=== PATIENT | male | born 1965 | race Caucasian/White ===

== ENCOUNTER 2020-01-11 23:00 | Inpatient (IN) | payer OTHER, SELFPAY ==
[2020-01-11] MEDS ORDERED: RSI MEDICATION KIT IV ONE (23:08)
[2020-01-11] MEDS ORDERED: NA CHLORIDE 0.9% 1,000 ML ONE ×2 (23:08→23:44)
[2020-01-11] MEDS ORDERED: NA CHLORIDE 0.9% 2,000 ML ONE (23:15)
[2020-01-11 23:31] LABS: Absolute Lymphocytes (CBC) 0.7 K/uL (0.7-4.9); Basophils % 0.3 % (0-1.3); Hematocrit 46.2 % (39.6-49.0); Lymphocytes % 4.6 % (15.3-44.8); MPV 9.5 fL (7.6-11.3); RBC Red Blood Cell Count 4.72 M/uL (4.33-5.43)
[2020-01-11] MEDS ORDERED: propofoL 1,000 MG/100 ML VIAL IV ONE (23:34)
[2020-01-11 23:35] LABS: Protime INR 0.93
[2020-01-11 23:44] LABS: Barbiturates NEGATIVE (NEGATIVE); Benzodiazepines POSITIVE (NEGATIVE); Cocaine NEGATIVE (NEGATIVE); METHAMPHETAM NEGATIVE (NEGATIVE); Methadone NEGATIVE (NEGATIVE); Opiates NEGATIVE (NEGATIVE); Phencyclidine NEGATIVE (NEGATIVE); THC Cannibis NEGATIVE (NEGATIVE)
[2020-01-11 23:44] LABS: Urine Blood NEGATIVE (NEG); Urine Glucose NEGATIVE (NEG); Urine Protein NEGATIVE (NEG); Urine Specific Gravity <1.005 (1.005-1.030)
[2020-01-11 23:59] LABS: ALT/SGPT 74 U/L (12-78); AST/SGOT 55 U/L (15-37); Albumin 3.3 g/dL (3.4-5.0); Alkaline Phosphatase 124 U/L (45-117); BUN Blood Urea Nitrogen 7 mg/dL (7-18); Bicarbonate 24 mmol/L (21-32); Bilirubin Direct 0.2 mg/dL (0-0.2); Bilirubin Total 0.6 mg/dL (0.2-1.0); Glucose Level 135 mg/dL (74-106); NT PRO-BNP 172 pg/mL (<125); Potassium 3.3 mmol/L (3.5-5.1); Protein, Total 6.8 g/dL (6.4-8.2); Sodium Level 137 mmol/L (136-145); Troponin (Emerg Dept Use Only) < 0.02 ng/mL (0.0-0.045)
[2020-01-12 00:26] LABS: Blood Morphology Comment NOT SEEN (NOT SEEN); Platelet Estimate ADEQ
[2020-01-12 00:40] LABS: Arterial Blood Carboxyhemoglob 1.7 % (0-1.5); Blood Gas Oxyhemoglobin 96.7 % (94-97); Blood O2 Saturation 99.2 % (92-98.5)
--- NOTE | 2020-01-12 01:04 | EDPHYS ---
Physician Documentation [facility] Name: Sheldon Cano Age: 54 yrs Sex: Male : 1965 Arrival Date: 01/11/2020 Time: 23:02 Bed 3 Private MD: ED Physician Derick Jeffery HPI: 01/11 00:35 This 54 yrs old Male presents to ER via EMS with complaints of Unresponsive. tw4 00:35 The patient presents with decreased mental status, decreased responsiveness. Onset: The tw4 symptoms/episode began/occurred today. Onset: The symptoms/episode began/occurred just prior to arrival. Possible causes: drug use, alcohol. Associated signs and symptoms: The patient has no apparent associated signs or symptoms. Current symptoms: In the emergency department the patient's symptoms are unchanged from the initial presentation. Patient's baseline: Neuro: alert and fully oriented, Motor: no deficits. The patient has not experienced similar symptoms in the past. Historical: - Allergies: 01/10 23:15 Unable to obtain; lp1 - Home Meds: 23:15 Unable to obtain [Active]; lp1 - PMHx: 23:15 Unable to obtain; lp1 - PSHx: 23:15 Unable to obtain; lp1 - Immunization history:: Adult Immunizations unknown. - Social history:: Smoking status: unknown. - History obtained from: son, EMS. - Unable to obtain history due to: comatose state. ROS: 01/11 00:35 Constitutional: Negative for fever, chills, and weight loss, Eyes: Negative for injury, tw4 pain, redness, and discharge, Cardiovascular: Negative for chest pain, palpitations, and edema, Respiratory: Negative for shortness of breath, cough, wheezing, and pleuritic chest pain, Abdomen/GI: Negative for abdominal pain, nausea, vomiting, diarrhea, and constipation, Back: Negative for injury and pain, Skin: Negative for injury, rash, and discoloration. Neuro: Positive for altered mental status. Exam: 00:35 Constitutional: This is a well developed, well nourished patient who is awake, alert, tw4 and in no acute distress. Head/Face: Normocephalic, atraumatic. Chest/axilla: Normal chest wall appearance and motion. Nontender with no deformity. No lesions are appreciated. Cardiovascular: Regular rate and rhythm with a normal S1 and S2. No gallops, murmurs, or rubs. Normal PMI, no JVD. No pulse deficits. Abdomen/GI: Soft, non-tender, with normal bowel sounds. No distension or tympany. No guarding or rebound. No evidence of tenderness throughout. Back: No spinal tenderness. No costovertebral tenderness. Full range of motion. 00:35 Constitutional: The patient appears comatose. 00:35 Eyes: Pupils: 00:35 Respiratory: the patient does not display signs of respiratory distress, Respirations: shallow respirations, Breath sounds: are clear throughout. 00:35 Neuro: Orientation: unable to test, the patient is comatose, Mentation: unable to test, Memory: unable to test. Vital Signs: 01/10 23:05 BP 75 / 58; Pulse 78; Resp 12; Pulse Ox 100% on 15% Non-rebreather mask; Weight 90.72 lp1 kg; 23:10 BP 96 / 74; Pulse 80; Resp 19; Pulse Ox 100% on 100% FiO2 ETT vent; rv 23:23 Temp 95.6(C); mg2 23:30 BP 147 / 94; Pulse 101; Resp 20; Temp 96.1(C); Pulse Ox 100% on 100% FiO2 ETT vent; rv 01/11 00:10 BP 123 / 72; Pulse 92; Resp 20; Pulse Ox 100% on 100% FiO2 ETT vent; rv 00:30 BP 113 / 78; Pulse 97; Resp 16; Temp 93.2(C); Pulse Ox 100% on 60% FiO2 ETT vent; rv 00:45 BP 101 / 76; Pulse 96; Resp 16; Temp 93.1; Pulse Ox 100% on 60% FiO2 ETT vent; rv 01:30 BP 96 / 76; Pulse 87; Resp 16; Temp 93.2; Pulse Ox 100% on 60% FiO2 ETT vent; rv 02:30 BP 91 / 67; Pulse 79; Resp 16; Temp 93.2; Pulse Ox 100% on 60% FiO2 ETT vent; rv 07:00 BP 103 / 70; Pulse 89; Resp 16; Temp 95.3; Pulse Ox 98% ; bp [place] Coma Score: 00:00 Eye Response: none(1). Verbal Response: none(1). Motor Response: none(1). Total: 3. rv 01:00 Eye Response: none(1). Verbal Response: none(1). Motor Response: none(1). Modifying rv Factors: Intubated. Total: 3. 02:00 Eye Response: none(1). Verbal Response: none(1). Motor Response: none(1). Modifying rv Factors: Intubated. Total: 3. Procedures: 03:35 Intubation: Ventilated with 100% NRB prior to procedure. O2 saturation prior to tw4 procedure was 97 %. Intubated orally using # 4 Jeremi blade with 7.5 mm ETT. was successful on first attempt. Ventilated with Ambu bag. ventilator. Tube secured with ETT vann at right side of mouth Placement verified by CXR, CO2 detector with (+) color change, auscultating bilateral breath sounds, Patient tolerated well. MDM: 01:00 Differential Diagnosis: electrolyte abnormality, hypoglycemia. Data reviewed: vital tw4 signs, nurses notes. Data reviewed: lab test result(s), cardiac enzymes, CBC, electrolytes, urine drug screen. Data interpreted: Pulse oximetry: Interpretation: normal. 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 Counseling: I had a detailed discussion with the patient and/or guardian regarding: the historical points, exam findings, and any diagnostic results supporting the discharge/admit diagnosis, lab results, radiology results. 01:03 Patient medically screened. tw4 03:13 Physician consultation: Sundar Sibley was contacted at 00:15, and will see patient in 4 inpatient room. 03:35 Test interpretation: by ED physician or midlevel provider: ECG, plain radiologic tw4 studies. ED course: Pt's workup in the ED did not reveal the etiology of patient;s altered mental status. Pt's drug screen was positive for benzodiazepine. However after speaking with family pt did not take any medications chronically. Pt rested comfort on the ventilator and ABG did not reveal any abnormalities. CT scan were also negative as well. Discussed case with Dr Sibley that agrees with treatment plan and admission . 01/10 23:11 Order name: Acetaminophen; Complete Time: 00:24 mg2 01/11 00:24 Interpretation: Within normal limits: ACETA < 2.0. tw4 01/10 23:11 Order name: Basic Metabolic Panel; Complete Time: 00:24 mg2 01/11 00:24 Interpretation: Normal except: K 3.3; GLUC 135; GFR 64. [facility] 01/10 23:11 Order name: CBC with Diff; Complete Time: 01:00 mg2 01/11 00:25 Interpretation: Normal except: WBC 14.9; LYM% 4.6; LUCIA% 90.7; NEUT A 13.5. [facility] 01/10 23:11 Order name: ETOH Level; Complete Time: 00:24 mg2 01/11 00:25 Interpretation: Within normal limits: ETOH < 10. 01/10 23:11 Order name: Hepatic Function; Complete Time: 00:24 mg2 01/10 23:11 Order name: PT-INR; Complete Time: 00:24 mg2 01/11 00:25 Interpretation: Within normal limits: PT 11.0. 01/10 23:11 Order name: Ptt, Activated; Complete Time: 00:24 mg2 01/11 00:25 Interpretation: Within normal limits: PTT 27.1. [facility] 01/10 23:11 Order name: Salicylate; Complete Time: 00:24 mg2 01/11 00:25 Interpretation: Within normal limits: ELSY 3.7. [facility] 01/10 23:11 Order name: Urine Drug Screen; Complete Time: 00:24 mg2 01/11 00:24 Interpretation: Normal except: BZO POSITIVE. 01/10 23:11 Order name: Troponin (emerg Dept Use Only); Complete Time: 00:24 mg2 01/11 00:25 Interpretation: Within normal limits: TROPED < 0.02. 01/10 23:18 Order name: COVID-19 [facility] 01/10 23:18 Order name: Flu; Complete Time: 00:24 mg2 01/11 00:25 Interpretation: Within normal limits. 01/10 23:18 Order name: Strep; Complete Time: 00:24 mg2 01/11 00:25 Interpretation: Within normal limits. 01/10 23:21 Order name: Urine Dipstick--Ancillary (enter results); Complete Time: 00:24 mt 01/11 00:25 Interpretation: Within normal limits. 01/10 23:26 Order name: D-Dimer; Complete Time: 00:24 EDMS 01/11 00:24 Interpretation: Abnormal: D-DIMER 722. 01/10 23:31 Order name: NT PRO-BNP; Complete Time: 00:24 EDPA 01/11 00:24 Interpretation: Normal except: NT PRO-BNP 172. tw4 01/10 23:39 Order name: Manual Differential; Complete Time: 01:00 EDPA 01/11 00:34 Order name: Throat Culture EDPA 01/11 00:39 Order name: ABG Arterial Blood Gas; Complete Time: 01:00 EDPA 01/11 01:03 Order name: Lactate; Complete Time: 03:12 tw 01/11 01:16 Order name: Blood Culture Adult (2) 01/11 04:03 Order name: CBC with Automated Diff EDPA 01/11 04:06 Order name: Protime (+INR) EDPA 01/11 04:31 Order name: Glucose, Ancillary Testing EDPA 01/11 04:32 Order name: Comprehensive Metabolic Panel [facility] 01/11 04:32 Order name: Phosphorus EDPA 01/11 04:32 Order name: Troponin I EDPA 01/10 23:11 Order name: EKG; Complete Time: 23:12 [facility] 01/10 23:11 Order name: EKG - Nurse/Tech; Complete Time: 23:19 [facility] 01/10 23:11 Order name: IV Saline Lock; Complete Time: 00:22 [facility] 01/10 23:11 Order name: Labs collected and sent; Complete Time: 00:22 [facility] 01/10 23:11 Order name: Urine Dipstick-Ancillary (obtain specimen); Complete Time: 00:22 [facility] 01/10 23:15 Order name: CXR XRAY [facility] 01/10 23:16 Order name: CT Head C Spine ne 01/10 23:18 Order name: Document PUI#; Complete Time: 00:22 [facility] 01/10 23:18 Order name: Droplet/Contact Precautions; Complete Time: 00:22 [facility] 01/10 23:18 Order name: Labs collected and sent; Complete Time: 00:21 [facility] 01/10 23:18 Order name: Notify [facility] [phone]/ ; Complete Time: 00:21 [facility] 01/10 23:18 Order name: O2 Per Protocol; Complete Time: 00:21 [facility] 01/10 23:40 Order name: CT Chest For PE Angio [facility] 01/11 02:51 Order name: CONS Physician Consult EDMS 01/11 04:32 Order name: T4 Free [facility] 01/11 04:32 Order name: Magnesium [facility] 01/11 04:32 Order name: Thyroid Stimulating Hormone [facility] 01/11 08:00 Order name: Troponin I [facility] EC:37 Rate is 78 beats/min. Rhythm is irregularly irregular, Normal Sinus Rhythm with Right tw4 bundle branch block. QRS [place] is Normal. MT interval is normal. QRS interval is normal. QT interval is prolonged at 458 msec. No Q waves. T waves are Normal. No ST changes noted. Clinical impression: NSR w/ Non-specific ST/T Changes. Interpreted by me. Reviewed by me. Administered Medications: 01/10 23:05 Drug: NS 0.9% 1000 ml Route: IV; Rate: 1000 ml; Site: right antecubital; lp1 01/11 00:21 Follow up: IV Status: Completed infusion; IV Intake: 1000ml rv 01/10 23:10 Drug: Etomidate 20 mg Route: IVP; Site: right antecubital; lp1 01/11 00:21 Follow up: Response: No adverse reaction rv 01/10 23:11 Drug: Succinylcholine 100 mg Route: IVP; Site: right antecubital; lp1 01/11 00:21 Follow up: Response: No adverse reaction 01/10 23:19 CANCELLED (Duplicate Order): Etomidate 20 mg IVP once rr5 23:19 CANCELLED (Duplicate Order): Succinylcholine 100 mg IVP once rr5 23:23 Drug: NS 0.9% 1000 ml Route: IV; Rate: 1 bolus; Site: left forearm; mg2 01/11 00:20 Follow up: IV Status: Completed infusion; IV Intake: 1000ml rv 01/10 23:40 Drug: Propofol 5 mcg/kg/min Route: IV; Rate: calculated rate; Site: left forearm; rv 01/11 00:30 Drug: Propofol 5 mcg/kg/min Route: IV; Rate: calculated rate; Site: left forearm; rv 03:21 Follow up: Rate change 2.5 mcg/kg/min rv 03:23 Follow up: IV Status: Infusion continued upon admission rv 01:34 Drug: Zosyn 3.375 grams Route: IVPB; Infused Over: 60 mins; Site: right antecubital; rv 02:35 Follow up: IV Status: Completed infusion rv Disposition: 03:35 Critical Care:. tw4 Disposition: 01/12/20 01:03 Hospitalization ordered by Sundar Sibley for Inpatient Admission. Preliminary diagnosis are Acute respiratory failure, Hypotension, Poisoning by benzodiazepines, undetermined, Altered mental status, unspecified. - Bed requested for Intensive Care Unit. - Status is Inpatient Admission. eb - Condition is Fair. - Problem is new. - Symptoms are unchanged. Critical care time excluding procedures: 03:35 Critical care time: Bedside Care: 35 minutes, Consultation: 10 minutes, Family tw4 Intervention: 5 minutes. Total time: 50 minutes Signatures: Dispatcher [employer] EDPA Nati Figueroa RN RN lp1 Madison Ramsey RN ANDRZEJ Derick Jeffery MD MD tw4 Lisset Bartlett Michele RN ANDRZEJ mg2 Devyn Raya RN RN rv Toby Nunez RN RN rr5 Corrections: (The following items were deleted from the chart) 01/10 23:19 23:18 Etomidate 20 mg IVP once ordered. rr5 rr5 23:19 23:18 Succinylcholine 100 mg IVP once ordered. rr5 rr5 23:26 23:21 D-DIMER+COAG.LAB.BRZ ordered. [facility] EDPA 23:31 23:21 TROPONIN (EMERG DEPT USE ONLY)+C.LAB.BRZ ordered. [facility] EDPA 23:31 23:21 PROBNP+C.LAB.BRZ ordered. [facility] 01/11 03:21 01:03 Hospitalization Ordered by Sundar Sibley for Inpatient Admission. Preliminary cg diagnosis is Acute respiratory failure; Hypotension; Poisoning by benzodiazepines, undetermined; Altered mental status, unspecified. Bed requested for Intensive Care Unit. Status is Inpatient Admission. Condition is Fair. Problem is new. Symptoms are unchanged. 4 05:50 03:21 01/12/2020 01:03 Hospitalization Ordered by Sundar Sibley for Inpatient cg Admission. Preliminary diagnosis is Acute respiratory failure; Hypotension; Poisoning by benzodiazepines, undetermined; Altered mental status, unspecified. Bed requested for [facility] ER HOLD. Status is Inpatient Admission. Condition is Fair. Problem is new. Symptoms are unchanged. cg 08:11 05:50 01/12/2020 01:03 Hospitalization Ordered by Sundar Sibley for Inpatient eb Admission. Preliminary diagnosis is Acute respiratory failure; Hypotension; Poisoning by benzodiazepines, undetermined; Altered mental status, unspecified. Bed requested for Intensive Care Unit. Status is Inpatient Admission. Condition is Fair. Problem is new. Symptoms are unchanged. cg
--- NOTE | 2020-01-12 01:04 | ER ---
Nurse's Notes [facility] Name: Sheldon Cano Age: 54 yrs Sex: Male : 1965 Arrival Date: 01/11/2020 Time: 23:02 Bed 3 Private MD: Diagnosis: Acute respiratory failure;Hypotension;Poisoning by benzodiazepines, undetermined;Altered mental status, unspecified Presentation: 01/10 23:05 Chief complaint: Chief complaint: EMS states: Called for patient found unresponsive lp1 sitting in chair on balcony by children; Per EMS, BP 87/53, HR 100, RR 16, O2 99% RA; No response with sternal rub or ammonia capsule by EMS. 23:08 Coronavirus screen: Proceed with normal triage. Ebola Screen: No symptoms or risks lp1 identified at this time. Risk Assessment: Do you want to hurt yourself or someone else? Unable to obtain. Onset of symptoms was January 11, 2020 at 22:23. Care prior to arrival: None. 23:08 Method Of Arrival: EMS: [facility] lp1 23:08 Acuity: JARED 1 lp1 23:19 Initial Sepsis Screen: Does the patient meet any 2 criteria? No. Patient's initial lp1 sepsis screen is negative. Does the patient have a suspected source of infection? No. Patient's initial sepsis screen is negative. Historical: - Allergies: 23:15 Unable to obtain; lp1 - Home Meds: 23:15 Unable to obtain [Active]; lp1 - PMHx: 23:15 Unable to obtain; lp1 - PSHx: 23:15 Unable to obtain; lp1 - Immunization history:: Adult Immunizations unknown. - Social history:: Smoking status: unknown. - History obtained from: son, EMS. - Unable to obtain history due to: comatose state. Screenin/26 00:25 Abuse screen: unresponsive. Nutritional screening: No deficits noted. Tuberculosis rv screening: No symptoms or risk factors identified. Fall Risk None identified. Assessment: 01/10 23:30 General: Appears distressed, Behavior is unresponsive. rv 23:30 Pain: Unable to use pain scale. Patient is unresponsive. Neuro: Level of Consciousness rv is unresponsive, Oriented to none Pupils are PERRLA, Pupil Size: 2. Cardiovascular: Rhythm is sinus rhythm with unifocal PVCs. Respiratory: Airway is patent Respiratory effort is even, Respiratory pattern is regular, Ventilator assessment: ET Tube: 7.5 Ventilator Mode: Assist Control (AC) Tidal Volume: 540 Respiratory Rate: 16 FiO2: 100%. HOB > 30 degrees. 24 at teeth Breath sounds are clear bilaterally. Derm: Skin is intact. 01/11 00:24 Respiratory: Ventilator assessment: ET tube adjusted by RT to 22 at teeth. rv 00:47 Reassessment: talked to the son at bedside. updated on the test results and plan of rv care. Dr Jeffery went in the room and explained to the relative the situation. 01:00 Reassessment:. Neuro: Level of Consciousness is unresponsive, Oriented to none Pupils rv are PERRLA, Pupil Size: 2. 01:00 Respiratory: Airway is patent Ventilator assessment: Ventilator Mode: Assist Control rv (AC) Tidal Volume: 540 Respiratory Rate: 16 FiO2: 60 HOB > 30 degrees. Breath sounds are clear bilaterally. 02:00 Neuro: Level of Consciousness is unresponsive, Oriented to none Pupils are PERRLA, rv Pupil Size: 2. Cardiovascular: Rhythm is sinus rhythm. Respiratory: Airway is patent Ventilator assessment: Ventilator Mode: Assist Control (AC) Tidal Volume: 540 Respiratory Rate: 16 FiO2: 60 HOB > 30 degrees. 07:00 Reassessment: RECD REPORT FROM ARLEEN DONNELLY. 54YO WM FOUND UNRESPONSIVE. PT NOT REQUIRING bp SEDATION FOR INTUBATION AT THIS TIME. ICU ADMIT PENDING. 07:42 Reassessment: REPORT TO CRISTAL DONNELLY FOR ICU 8. bp Vital Signs: 01/10 23:05 BP 75 / 58; Pulse 78; Resp 12; Pulse Ox 100% on 15% Non-rebreather mask; Weight 90.72 lp1 kg; 23:10 BP 96 / 74; Pulse 80; Resp 19; Pulse Ox 100% on 100% FiO2 ETT vent; rv 23:23 Temp 95.6(C); mg2 23:30 BP 147 / 94; Pulse 101; Resp 20; Temp 96.1(C); Pulse Ox 100% on 100% FiO2 ETT vent; rv 01/11 00:10 BP 123 / 72; Pulse 92; Resp 20; Pulse Ox 100% on 100% FiO2 ETT vent; rv 00:30 BP 113 / 78; Pulse 97; Resp 16; Temp 93.2(C); Pulse Ox 100% on 60% FiO2 ETT vent; rv 00:45 BP 101 / 76; Pulse 96; Resp 16; Temp 93.1; Pulse Ox 100% on 60% FiO2 ETT vent; rv 01:30 BP 96 / 76; Pulse 87; Resp 16; Temp 93.2; Pulse Ox 100% on 60% FiO2 ETT vent; rv 02:30 BP 91 / 67; Pulse 79; Resp 16; Temp 93.2; Pulse Ox 100% on 60% FiO2 ETT vent; rv 07:00 BP 103 / 70; Pulse 89; Resp 16; Temp 95.3; Pulse Ox 98% ; bp [place] Coma Score: 00:00 Eye Response: none(1). Verbal Response: none(1). Motor Response: none(1). Total: 3. rv 01:00 Eye Response: none(1). Verbal Response: none(1). Motor Response: none(1). Modifying rv Factors: Intubated. Total: 3. 02:00 Eye Response: none(1). Verbal Response: none(1). Motor Response: none(1). Modifying rv Factors: Intubated. Total: 3. ED Course: 01/10 23:02 Patient arrived in ED. cl3 23:05 Inserted saline lock: 18 gauge in right antecubital area, using aseptic technique. By lp1 ED staff. 23:10 First set of blood cultures drawn by me. rv 23:11 Assisted provider with intubation using 7.5 mm ETT via oral route. ET tube secured at lp1 24cm at the teeth. Set up intubation tray. Intubated by Derick Jeffery MD Placement verified by CO2 detector w/ + color change, auscultating bilateral breath sounds, CXR. 23:12 Triage completed. lp1 23:15 Patient has correct armband on for positive identification. Placed in gown. Side rails lp1 up X2. supervisor cab on. Pulse ox on. NIBP on. 23:20 Derick Jeffery MD is Attending Physician. tw4 23:20 Arm band placed on right wrist. lp1 23:22 Alex Donis, ANDRZEJ is Primary Nurse. mg2 23:42 CXR XRAY In Process Unspecified. EDMS 01/11 00:15 [place] cath inserted, using sterile technique, 16 Fr., by me, balloon inflated, to rv gravity drainage, urine specimen collected. Patient tolerated well. 00:26 CT Head C Spine In Process Unspecified. EDMS 00:29 CT Chest For PE Angio In Process Unspecified. EDMS 01:02 Sundar Sibley is Hospitalizing Provider. tw4 01:25 Second set of blood cultures drawn by me. rv 03:22 IV is patent, with fluids infusing freely, with good blood return, Patient admitted, IV rv remains in place. Administered Medications: 01/10 23:05 Drug: NS 0.9% 1000 ml Route: IV; Rate: 1000 ml; Site: right antecubital; lp1 01/11 00:21 Follow up: IV Status: Completed infusion; IV Intake: 1000ml rv 01/10 23:10 Drug: Etomidate 20 mg Route: IVP; Site: right antecubital; lp1 01/11 00:21 Follow up: Response: No adverse reaction rv 01/10 23:11 Drug: Succinylcholine 100 mg Route: IVP; Site: right antecubital; lp1 01/11 00:21 Follow up: Response: No adverse reaction rv 01/10 23:19 CANCELLED (Duplicate Order): Etomidate 20 mg IVP once rr5 23:19 CANCELLED (Duplicate Order): Succinylcholine 100 mg IVP once rr5 23:23 Drug: NS 0.9% 1000 ml Route: IV; Rate: 1 bolus; Site: left forearm; mg2 01/11 00:20 Follow up: IV Status: Completed infusion; IV Intake: 1000ml rv 01/10 23:40 Drug: Propofol 5 mcg/kg/min Route: IV; Rate: calculated rate; Site: left forearm; rv 01/11 00:30 Drug: Propofol 5 mcg/kg/min Route: IV; Rate: calculated rate; Site: left forearm; rv 03:21 Follow up: Rate change 2.5 mcg/kg/min rv 03:23 Follow up: IV Status: Infusion continued upon admission rv 01:34 Drug: Zosyn 3.375 grams Route: IVPB; Infused Over: 60 mins; Site: right antecubital; rv 02:35 Follow up: IV Status: Completed infusion rv Intake: 00:20 IV: 1000ml; Total: 1000ml. rv 00:21 IV: 1000ml; Total: 2000ml. rv 03:26 IV: 2000ml (IV Fluid); Total: 4000ml. rv Output: 03:26 Urine: 1000ml ([place]); Total: 1000ml. rv Outcome: 01:03 Decision to Hospitalize by Provider. tw4 03:22 Admitted to ER Hold. Please see [facility] for further documentation. rv 03:22 Condition: stable 03:22 Discharge instructions given to family, Instructed on the need for admit, Demonstrated understanding of instructions. 08:11 Patient left the ED. eb Signatures: Dispatcher [employer] EDNati Wright RN RN lp1 Moses Pemberton RN RN bp Derick Jeffery MD MD tw4 Lisset Bartlett Michele, RN RN [facility] Devyn Raya RN RN rv Miguel Alves3 Toby Nunez RN rr5 Corrections: (The following items were deleted from the chart) 01/10 23:12 23:05 Chief complaint: lp1 lp1 01/11 00:25 01/10 23:30 Neuro: Level of Consciousness is unresponsive, Oriented to none rv rv
[2020-01-12] MEDS ORDERED: PIPER/TAZO/NS 3.375gm 3.375 GM/100 ML BAG ONE (01:21)
--- NOTE | 2020-01-12 02:48 | P.HP ---
Certification for Inpatient Patient admitted to: Inpatient With expected LOS: >2 Midnights Practitioner: I am a practitioner with admitting privileges, knowledge of patient current condition, hospital course, and medical plan of care. Services: Services provided to patient in accordance with Admission requirements found in Title 42 Section 412.3 of the Code of Federal Regulations Patient History Date of Service: 01/12/20 Reason for admission: Unresponsive History of Present Illness: 54-year-old gentleman was brought to the emergency department via EMS on response, on 100% non-rebreather. EMS reports patient was found unresponsive sitting on his pouch. Patient son found him unresponsive and called EMS. Patient was intubated in the emergency department secondary to respiratory depression. He was also found to be hypothermic. Other positive findings include urine toxicology screen positive for benzodiazepine, hypothermia leukocytosis. His D-dimer was elevated but CTA thorax was negative for pulmonary embolism. Cause of patient's altered mental status is unknown. Benzodiazepine overdose suspected. Patient blood pressure has been stable. He is admitted to ICU for further management. Allergies Unable to Assess Allergy (Unverified 01/12/20 03:28) - Past Medical/Surgical History -: None - Family History Family History: Reviewed- Non-Contributory - Social History Alcohol use: Yes Place of Residence: Home Review of Systems is unable to be obtained Physical Examination - Physical Exam General: Unresponsive HEENT: Atraumatic, Other (Pinpoint pupils.), Sclerae nonicteric Neck: Supple, 2+ carotid pulse no bruit Respiratory: Clear to auscultation bilaterally, Normal air movement Cardiovascular: No edema, Regular rate/rhythm, Normal S1 S2 Capillary refill: <2 Seconds Gastrointestinal: Normal bowel sounds, Soft and benign, Non-distended Musculoskeletal: No swelling, No erythema Integumentary: No rashes Neurological: Other (Unresponsive.) - Studies Laboratory Data (last 24 hrs) 01/11/20 23:10: PT 11.0, INR 0.93, APTT 27.1 01/11/20 23:10: WBC 14.9 H, Hgb 15.6, Hct 46.2, Plt Count 179 01/11/20 23:10: Sodium 137, Potassium 3.3 L, BUN 7, Creatinine 1.19, Glucose 135 H, Total Bilirubin 0.6, AST 55 H, ALT 74, Alkaline Phosphatase 124 H Microbiology Data (last 24 hrs): 01/11/20 23:25 Throat Group A Streptococcus Rapid Screen - Final 01/11/20 23:25 Nasopharnyx Influenza Type A Antigen Screen - Final 01/11/20 23:25 Nasopharnyx Influenza Type B Antigen Screen - Final Assessment and Plan - Problems (Diagnosis) (1) Metabolic encephalopathy Current Visit: Yes Status: Acute (2) Acute respiratory failure Current Visit: Yes Status: Acute (3) Respiratory depression Current Visit: Yes Status: Acute (4) Hypothermia Current Visit: Yes Status: Acute - Plan Benzodiazepine overdose with respiratory depression suspected. Admit to ICU. Continue mechanical ventilator. P.r.n. sedation as needed. Neuro checks Consult to neurology Warming blanket. Empiric IV antibiotics. IV hydration. - Advance Directives Does patient have a Living Will: No Does patient have a Durable POA for Healthcare: No
[2020-01-12] MEDS ORDERED: NA CHLORIDE 0.9% 1,000 ML ONE (03:17)
[2020-01-12] MEDS ORDERED: ACETAMINOPHEN 650MG/RECT SUPP RECT PRN (03:29)
[2020-01-12] MEDS: D5 0.9 NS 1,000 ML IV SCH ×4 (03:29→17:26)
[2020-01-12] MEDS ORDERED: ONDANSETRON 4 MG/2 ML VIAL IV PRN (03:29)
[2020-01-12] MEDS ORDERED: VANCOMYCIN 1.25 GM in NA CHLORIDE 0.9% 250 ML IVPB SCH (03:29)
[2020-01-12 03:59] LABS: Absolute Lymphocytes (CBC) 0.7 K/uL (0.7-4.9); Basophils % 0.2 % (0-1.3); Hematocrit 40.5 % (39.6-49.0); Lymphocytes % 6.6 % (15.3-44.8); MPV 8.9 fL (7.6-11.3); RBC Red Blood Cell Count 4.12 M/uL (4.33-5.43)
[2020-01-12 04:20] LABS: ALT/SGPT 60 U/L (12-78); AST/SGOT 60 U/L (15-37); Albumin 2.5 g/dL (3.4-5.0); Alkaline Phosphatase 97 U/L (45-117); BUN Blood Urea Nitrogen 7 mg/dL (7-18); Bicarbonate 24 mmol/L (21-32); Bilirubin Total 0.8 mg/dL (0.2-1.0); Glucose Level 123 mg/dL (74-106); Magnesium 1.9 mg/dL (1.8-2.4); Phosphorus 4.2 mg/dL (2.5-4.9); Potassium 3.9 mmol/L (3.5-5.1); Protein, Total 5.2 g/dL (6.4-8.2); Sodium Level 142 mmol/L (136-145); Thyroid Stimulating Hormone 0.655 uIU/mL (0.360-3.740); Troponin I < 0.02 ng/mL (0.0-0.045)
[2020-01-12] MEDS ORDERED: VANCOMYCIN 1 GM/VIAL ONE (04:22)
[2020-01-12] MEDS ORDERED: NA CHLORIDE 0.9% 250 ML ONE (04:22)
[2020-01-12] MEDS ORDERED: D5W 1,000 ML IV ONE (04:23)
[2020-01-12] MEDS: CEFEPIME/SWI 1gm 10 ML IV SCH ×2 (06:00→17:12)
[2020-01-12] MEDS ORDERED: KCL 20 MEQ/100 mL IVPB 20 MEQ/100 ML BAG IV ONE (06:48)
[2020-01-12] MEDS ORDERED: D5 0.9 NS 1,000 ML IV ONE (06:48)
--- NOTE | 2020-01-12 06:48 | EKG ---
Test Date: 2020-01-11 Test Time: 23:05:03 Rubber Insulator: THI MEASUREMENT RESULTS: Intervals: Rate: 78 NV: 156 QRSD: 98 QT: 458 QTc: 522 [place]: P: 60 NV: 156 QRS: 90 T: 58 INTERPRETIVE STATEMENTS: Normal sinus rhythm Rightward axis Incomplete right bundle branch block Prolonged QT Abnormal ECG Compared to ECG 09/08/2008 18:16:57 Right-axis deviation now present Incomplete right bundle-branch block now present Prolonged QT interval now present Electronically Signed On 01-12-20 06:47:51 CDT by Jonh Balbuena
[2020-01-12] MEDS ORDERED: KCL 20 MEQ/100 mL IVPB 20 MEQ/100 ML BAG IV SCH (07:00)
--- NOTE | 2020-01-12 07:16 | RAD REPORT ---
EXAM DESCRIPTION: RAD - Chest Single View - 01/11/2020 11:42 pm CLINICAL HISTORY: unresponsive COMPARISON: Portable August 2008 TECHNIQUE: AP portable chest image was obtained 01/11/2020 11:42 pm . FINDINGS: Endotracheal tube is in good position mid aortic arch level. This is 2 cm above the peewee . No diffuse pulmonary edema or peripheral consolidation. Interstitial markings are mildly prominent. This is probably low lung volume artifact. A mild interstitial edema or infiltrate cannot be exclude d. Heart and vasculature are normal. No measurable pleural effusion and no pneumothorax. No acute bony abnormality seen. No acute aortic findings suspected. IMPRESSION: Endotracheal tube in good position. Interstitial opacification is probably low lung volume artifact. Mild interstitial edema or infiltrate cannot be excluded.
[2020-01-12] MEDS ORDERED: CEFEPIME 1 GM/VIAL IV SCH (09:00)
[2020-01-12] MEDS ORDERED: NA CHLORIDE 0.9% 1,000 ML IV ONE (09:06)
--- NOTE | 2020-01-12 11:18 | P.CNS ---
Date of Consult: 01/12/20 Reason for Consult: REspiratory failur dayana vent Chief Complaint: Unresponsive History of Present Illness: AW LOC. on Vent, Found unresponsive on cough. On ventilator now Pos for Benzos. pt is still unresponsive Allergies Unable to Assess Allergy (Unverified 01/12/20 03:28) - Past Medical/Surgical History -: None - Social History Smoking Status: Unknown if ever smoked Alcohol use: Yes Place of Residence: Home Review of Systems is unable to be obtained Physical Examination Temp Pulse Resp BP Pulse Ox 96.1 F L 83 14 80/57 L 97 01/12/20 09:00 01/12/20 09:00 01/12/20 09:00 01/12/20 09:00 01/12/20 09:00 General: Other (deferred pt Ro for coid ) Laboratory Data (last 24 hrs) 01/11/20 23:10: PT 11.0, INR 0.93, APTT 27.1 01/11/20 23:10: WBC 14.9 H, Hgb 15.6, Hct 46.2, Plt Count 179 01/11/20 23:10: Sodium 137, Potassium 3.3 L, BUN 7, Creatinine 1.19, Glucose 135 H, Total Bilirubin 0.6, AST 55 H, ALT 74, Alkaline Phosphatase 124 H - Problems (1) Acute respiratory failure Current Visit: Yes Status: Acute Plan: pt found unresponsive on vent. Tox screen pos for benzos mild hypercapnia. WBC now normal on 40% FIo2 COVID test pendingcultures neg CTA neg for PE and pneumnia. Ct head neg for stroke or bleed/ unable to contact son or sister listed UA neg afebrile/ plan to wean? Await cultures Qualifiers: Respiratory failure complication: hypoxia and hypercapnia Qualified Code(s): J96.01 - Acute respiratory failure with hypoxia; J96.02 - Acute respiratory failure with hypercapnia
[2020-01-12] MEDS ORDERED: SUCCINYLCHOLINE 20 MG/ML (10 ML) IV ONE (12:20)
[2020-01-12] MEDS ORDERED: ETOMIDATE 20 MG/10 ML VIAL IV ONE (12:20)
[2020-01-12] MEDS: THIAMINE 200 MG/2 ML INJ IVP SCH (14:43)
[2020-01-12] MEDS: ENOXAPARIN 40 MG/0.4 ML SQ SCH (14:44)
[2020-01-12] MEDS ORDERED: VANCOMYCIN 2 GM in NA CHLORIDE 0.9% 500 ML IVPB SCH ×2 (15:30→17:00)
--- NOTE | 2020-01-12 16:07 | PN ---
Date of Progress Note: 01/12/2020 Subjective: Patient seen through the ICU door. Case discussed with Dr. Joe. Patient is still intubated. No family at the bedside. Medications: List reviewed. Physical Examination: Vital Signs: Temperature 96.1, heart rate 83, blood pressure 80/57, respirations 14, O2 97% on 40% FiO2 Deferred as the patient has been seen past midnight is under investigation for COVID. Per state local CDC and [facility] guidelines to prevent transmission of the virus and conserve PPE. Please see, Dr. Sibley, admitting physician's physical examination for details. Laboratory Data: Sodium 142, potassium 3.9, chloride 112, CO2 of 24, BUN 7, creatinine 0.91, glucose 123, calcium 7.3, phosphorus 4.2, magnesium 1.9. AST 60, ALT 60. Troponin less than 0.02 x2 and rapid troponin also less than 0.02. Albumin 2.5. WBC 9.8, H and H 13.8 and 40.5, platelets 142, neutrophils 86%. INR 1. ABG; pH 7.32, pCO2 46, PO2 240, bicarb 23. UDS positive for benzodiazepines. Assessment: A 54-year-old male with: 1. Acute respiratory failure with hypoxia. We will continue with mechanical ventilation, appreciate Dr. Joe's input, likely secondary to respiratory depression from benzodiazepine use. 2. Acute metabolic encephalopathy, likely due to benzodiazepine use. Patient is not on any medications at home. 3. Hypothermia, improved. We will continue rewarming. Temperature is currently at 96.1, initially 95.6. 4. Acute hypotension. Blood pressure is 80/50s. We will repeat normal saline bolus and if not improving, we will start on pressors to keep MAP above 65. 5. Deep venous thrombosis prophylaxis with Lovenox. Plan: Continue broad-spectrum IV antibiotics. Follow up on culture results. COVID testing is also pending. Continue IV fluids. Overall guarded prognosis. We will reach out to family. SA/MODL Voice ID: [id number] Report ID: [id number] MILADIS
[2020-01-12] MEDS ORDERED: MIDAZOLAM HCL 2 MG/2 ML INJ IV PRN (16:38)
[2020-01-12] MEDS: LORazepam 2 MG/ML VIAL IV PRN (16:51)
[2020-01-12] MEDS: VANCOMYCIN 1.5 GM in NA CHLORIDE 0.9% 500 ML IVPB SCH (16:52)
--- NOTE | 2020-01-12 18:24 | RAD REPORT ---
EXAM DESCRIPTION: CT - [id number] - 01/12/2020 5:26 am CLINICAL HISTORY: Ams COMPARISON: None available TECHNIQUE: Axial CT of the head obtained from the skull apex to the skull base without contrast. Axi al CT images of the cervical spine obtained from the skull base through the thoracic inlet. Sagittal and coronal reformatted images available. FINDINGS: CT head: No acute intracranial hemorrhage identified. No mass, mass effect, shift of the midline, abnormal ext ra-axial fluid collection or CT evidence of acute ischemic change identified. The ventricular system is unremarkable. Scattered areas of hypodensity in the supratentorial white matter are nonspecific and may represent sequela of chronic small vessel ischemic change. The visualized paranasal sinuses and the mastoids are clear. No skull fracture identified. Visual ized orbits and globes are unremarkable. Cervical CT: Straightening of the cervical lordosis may be secondary to patient position. The atlantoaxial, atla ntodental, and occipitoatlantal intervals are preserved. No acute fracture of the cervical spine. V ertebral body height preserved. Prevertebral soft tissues are unremarkable. Mild to moderate multilevel loss of intervertebral disc height with endplate spondylosis, facet arthr opathy, and uncovertebral spurring. Mild multilevel osseous neural foraminal narrowing. Visualized skull base is intact. No fracture of the visualized facial bones. Visualized mastoid air c ells and paranasal sinuses are well aerated. Visualized thyroid is unremarkable. Partial visualization of endotracheal tube. No cervical lymphaden opathy. No pneumothorax in the visualized lung apices. IMPRESSION: 1. No acute intracranial abnormality. 2. No acute fracture or subluxation of the cervical spine. 3. Mild multilevel degenerative change of the cervical spine. This exam was performed according to our departmental dose-optimization program, which includes autom ated exposure control, adjustment of the mA and/or kV according to patient size and/or use of iterati ve reconstruction technique. Electronically signed by: Lux Rodriguez 01/12/2020 12:37 AM CDT Due to temporary technical issues with the PACS/Fluency reporting system, reports are being signed by the in house radiologist without review as a courtesy to ensure prompt reporting. The interpreting r adiologist is fully responsible for the content of the report.
--- NOTE | 2020-01-12 18:26 | RAD REPORT ---
EXAM DESCRIPTION: CT - Chest For Pe Angio - 01/12/2020 5:25 am CLINICAL HISTORY: The patient is 54 years old and is Male; SOB TECHNIQUE: Axial computed tomographic angiography images of the chest with intravenous contrast. T his CT exam was performed using one or more of the following dose reduction techniques: automated e xposure control, adjustment of the mA and/or kV according to patient size, and/or use of iterative re construction technique. MIP reconstructed images were created and reviewed. Oblique reformatted images were created and reviewed. DLP: 626 mGy*cm COMPARISON: Chest radiograph of the same day. FINDINGS: PULMONARY ARTERIES: Unremarkable. No pulmonary embolism. AORTA: No acute findings. No thoracic aortic aneurysm. LUNGS: Interlobular septal thickening bilaterally. Dependent subsegmental atelectasis and/or scarri ng. No focal consolidation. PLEURAL SPACE: Unremarkable. No significant effusion. No pneumothorax. HEART: The heart is mildly enlarged. No pericardial effusion. No evidence of RV dysfunction. BONES/JOINTS: No acute fracture. No dislocation. SOFT TISSUES: Unremarkable. LYMPH NODES: Unremarkable. No enlarged lymph nodes. GALLBLADDER AND BILE DUCTS: Prior cholecystectomy. TUBES, LINES AND DEVICES: Partially seen endotracheal tube. IMPRESSION: 1. No pulmonary embolism. 2. Mild cardiomegaly and interstitial edema. 3. Dependent subsegmental atelectasis and bibasilar scarring. Underlying infectious process cannot b e excluded although considered less likely. Electronically signed by: Kirit Carballo DO 01/12/2020 12:40 AM CDT Due to temporary technical issues with the PACS/Fluency reporting system, reports are being signed by the in house radiologist without review as a courtesy to ensure prompt reporting. The interpreting r adiologist is fully responsible for the content of the report.
[2020-01-12] MEDS: FAMOTIDINE 20 MG/2 ML VIAL IV SCH (20:32)
[2020-01-13] MEDS: D5 0.9 NS 1,000 ML IV SCH ×2 (03:02→08:17)
[2020-01-13] MEDS: VANCOMYCIN 1.5 GM in NA CHLORIDE 0.9% 500 ML IVPB SCH ×2 (05:21→17:00)
[2020-01-13] MEDS: CEFEPIME/SWI 1gm 10 ML IV SCH ×2 (05:22→17:03)
[2020-01-13 05:48] LABS: BUN Blood Urea Nitrogen 4 mg/dL (7-18); Bicarbonate 24 mmol/L (21-32); Glucose Level 121 mg/dL (74-106); Phosphorus 1.6 mg/dL (2.5-4.9); Potassium 3.5 mmol/L (3.5-5.1); Sodium Level 144 mmol/L (136-145)
[2020-01-13] MEDS ORDERED: POTASSIUM PHOS IN 0.9 % NACL 15 MMOL/250 ML BAG IV ONE (07:30)
[2020-01-13] MEDS: THIAMINE 200 MG/2 ML INJ IVP SCH (08:17)
[2020-01-13] MEDS: FAMOTIDINE 20 MG/2 ML VIAL IV SCH ×2 (08:17→20:07)
[2020-01-13] MEDS ORDERED: FUROSEMIDE 40 MG/4 ML VIAL IV ONE (14:10)
[2020-01-13] MEDS: FENTANYL CITR 100 MCG/2 ML IV PRN (14:19)
[2020-01-13] MEDS: D5.45NS W/KCL 20MEQ 20 MEQ/1,000 ML BAG IV SCH (14:20)
--- NOTE | 2020-01-13 14:28 | P.PN ---
Subjective Date of Service: 01/13/20 Chief Complaint: Unresponsive Subjective: New changes (more agitated , intermitently opens eyes - on weaning down fio02 - on pressure support now - no sedation since last pm) Review of Systems is unable to be obtained Physical Examination - Vital Signs Temperature: 97.6 F Blood Pressure: 154/135 Pulse: 98 Respirations: 21 Pulse Ox (%): 100 - Physical Exam General: Delirious HEENT: Atraumatic, Normocephalic (orally tubed) Neck: Supple, 2+ carotid pulse no bruit Respiratory: Clear to auscultation bilaterally, Normal air movement Cardiovascular: Normal pulses, Regular rate/rhythm, Normal S1 S2 Gastrointestinal: Normal bowel sounds, Soft and benign, Non-distended, W/out succussion splash Musculoskeletal: No clubbing, No swelling Neurological: Other (obtunded, occ opens yes , not following commands ) Urinary: [place] catheter - Studies Laboratory Last Values WBC 14.9 K/uL (4.3-10.9) H 01/11/20 23:10 RBC 4.72 M/uL (4.33-5.43) 01/11/20 23:10 Hgb 15.6 g/dL (13.6-17.9) 01/11/20 23:10 Hct 46.2 % (39.6-49.0) 01/11/20 23:10 MCV 97.8 fL (80-100) 01/11/20 23:10 MCH 33.0 pg (27.0-35.0) 01/11/20 23:10 MCHC 33.7 g/dL (32.0-36.0) 01/11/20 23:10 RDW 13.7 % (12.1-15.2) 01/11/20 23:10 Plt Count 179 K/uL (152-406) 01/11/20 23:10 MPV 9.5 fL (7.6-11.3) 01/11/20 23:10 Neutrophils % 90.7 % (41.7-73.7) H 01/11/20 23:10 Lymphocytes % 4.6 % (15.3-44.8) L 01/11/20 23:10 Monocytes % 4.2 % (3.3-12.3) 01/11/20 23:10 Eosinophils % 0.2 % (0-4.4) 01/11/20 23:10 Basophils % 0.3 % (0-1.3) 01/11/20 23:10 Absolute Neutrophils 13.5 K/uL (1.8-8.0) H 01/11/20 23:10 Segmented Neutrophils 84 % (40-80) H 01/11/20 23:10 Band Neutrophils 5 % (0-1) H 01/11/20 23:10 Absolute Lymphocytes 0.7 K/uL (0.7-4.9) 01/11/20 23:10 Lymphocytes 6 % (15-42) L 01/11/20 23:10 Monocytes 5 % (0-10) 01/11/20 23:10 Absolute Monocytes 0.6 K/uL (0.1-1.3) 01/11/20 23:10 Absolute Eosinophils 0.0 K/uL (0-0.5) 01/11/20 23:10 Absolute Basophils 0.0 K/uL (0-0.5) 01/11/20 23:10 Morphology Comment Not seen (NOT SEEN) 01/11/20 23:10 PT 11.0 SECONDS (9.5-12.5) 01/11/20 23:10 INR 0.93 01/11/20 23:10 APTT 27.1 SECONDS (24.3-36.9) 01/11/20 23:10 D-Dimer Cancelled 01/11/20 23:21 pH 7.32 (7.35-7.45) L 01/12/20 00:39 pCO2 46.1 mmHG (35-45) H 01/12/20 00:39 pO2 240.0 mmHG (75-100) H 01/12/20 00:39 HCO3 23.3 mmol/L (22-28) 01/12/20 00:39 Base Excess -1.9 mmol/L 01/12/20 00:39 Oxyhemoglobin 96.7 % (94-97) 01/12/20 00:39 ABG O2 Sat (Measured) 99.2 % (92-98.5) H 01/12/20 00:39 ABG Carboxyhemoglobin 1.7 % (0-1.5) H 01/12/20 00:39 ABG Methemoglobin 0.8 % (0-1.5) 01/12/20 00:39 Other Total Hgb 14.5 g/dl (12-18) 01/12/20 00:39 Inspired O2 60.0 % 01/12/20 00:39 Sodium 137 mmol/L (136-145) 01/11/20 23:10 Potassium 3.3 mmol/L (3.5-5.1) L 01/11/20 23:10 Chloride 104 mmol/L (98-107) 01/11/20 23:10 Carbon Dioxide 24 mmol/L (21-32) 01/11/20 23:10 BUN 7 mg/dL (7-18) 01/11/20 23:10 Creatinine 1.19 mg/dL (0.55-1.3) 01/11/20 23:10 Estimated GFR 64 mL/min (=/>90) L 01/11/20 23:10 Glucose 135 mg/dL (74-106) H 01/11/20 23:10 Lactic Acid 0.9 mmol/L (0.4-2.0) 01/12/20 01:25 Calcium 8.6 mg/dL (8.5-10.1) 01/11/20 23:10 Total Bilirubin 0.6 mg/dL (0.2-1.0) 01/11/20 23:10 Direct Bilirubin 0.2 mg/dL (0-0.2) 01/11/20 23:10 AST 55 U/L (15-37) H 01/11/20 23:10 ALT 74 U/L (12-78) 01/11/20 23:10 Alkaline Phosphatase 124 U/L (45-117) H 01/11/20 23:10 Rapid Troponin I < 0.02 ng/mL (0.0-0.045) 01/11/20 23:10 Rapid Troponin I Cancelled 01/11/20 23:10 NT-Pro-B Natriuret Pep 172 pg/mL (<125) H 01/11/20 23:10 NT-Pro-B Natriuret Pep Cancelled 01/11/20 23:10 Serum Total Protein 6.8 g/dL (6.4-8.2) 01/11/20 23:10 Albumin 3.3 g/dL (3.4-5.0) L 01/11/20 23:10 Globulin 3.5 g/dL (2.3-3.5) 01/11/20 23:10 Albumin/Globulin Ratio 0.9 (1.1-1.8) L 01/11/20 23:10 Urine pH 6.0 (5.0-7.0) 01/11/20 23:21 Ur Specific [place] <1.005 (1.005-1.030) L 01/11/20 23:21 Glucose (UA)(Auto) Negative (NEG) 01/11/20 23:21 Urine Ketones Negative (NEG) 01/11/20 23:21 Urine Blood Negative (NEG) 01/11/20 23:21 Urine Nitrite Negative (NEG) 01/11/20 23:21 Ur Leukocyte Esterase Negative (NEG) 01/11/20 23:21 Urine Total Protein Negative (NEG) 01/11/20 23:21 Salicylates 3.7 mg/dL (2.8-20) 01/11/20 23:10 Opiates Screen Negative (NEGATIVE) 01/11/20 23:10 Methadone Screen Negative (NEGATIVE) 01/11/20 23:10 Acetaminophen < 2.0 ug/mL (10.0-30.0) L 01/11/20 23:10 Ur Barbiturates Screen Negative (NEGATIVE) 01/11/20 23:10 Ur Phencyclidine Scrn Negative (NEGATIVE) 01/11/20 23:10 Amphetamines Screen Negative (NEGATIVE) 01/11/20 23:10 Benzodiazepines Screen Positive (NEGATIVE) H 01/11/20 23:10 Cocaine Screen Negative (NEGATIVE) 01/11/20 23:10 Ur THC Screen Negative (NEGATIVE) 01/11/20 23:10 Plasma/Serum Alcohol < 10 mg/dL (<10) 01/11/20 23:10 Microbiology Data (last 24 hrs): 01/11/20 23:25 Nasopharnyx Coronavirus COVID-19 PCR - Final Medications List Reviewed: Yes Assessment & Plan - Problems (Diagnosis) (1) Acute respiratory failure Current Visit: Yes Status: Acute Qualifiers: Respiratory failure complication: hypoxia and hypercapnia Qualified Code(s): J96.01 - Acute respiratory failure with hypoxia; J96.02 - Acute respiratory failure with hypercapnia (2) Hypothermia Current Visit: Yes Status: Acute (3) Metabolic encephalopathy Current Visit: Yes Status: Acute (4) Respiratory depression Current Visit: Yes Status: Acute Physician Review: Patient Assessed, Agree with Above Assessment and Plan Physician Review Additional Text: # Metabolic encephalopathy - may be due to benzodiazepine intoxication given. urine toxicology - will restart gentle IVF to increase urine flow and clearance - follow blood cx to r/o sepsis # acute respiratory failure -intubated for airway protection. -continue to wean FiO2 settings - plan for extubate when medically more awake -Keep intubated tonight - following pulmonary # history of tobacco use-start nicotine patch. # hypertension/fluid overload -LASIX X1 TODAY # DVT prophylaxis. Subcutaneous heparin. Advanced directives-remains full code family -sister d/w Time Spent Managing Pts Care (In Minutes): 35
--- NOTE | 2020-01-13 14:31 | RAD REPORT ---
EXAM DESCRIPTION: RAD - Chest Single View - 01/13/2020 1:15 pm CLINICAL HISTORY: r/o pneumonia Chest pain. COMPARISON: Chest Single View dated 01/11/2020; CHEST SINGLE VIEW dated 09/12/2008; CHEST PA AND LAT 2 VIEW dated 09/08/2008; CHEST PA AND LAT 2 VIEW dated 06/21/2003Chest Single View dated 01/11/2020; CHES T SINGLE VIEW dated 09/12/2008; CHEST PA AND LAT 2 VIEW dated 09/08/2008; CHEST PA AND LAT 2 VIEW dated 06/21/2003; Chest For Pe Angio dated 01/11/2020 FINDINGS: Portable technique limits examination quality. Tip of the ET tube is above the peewee. Enteric tube descends into the stomach. The lungs appear zac sly clear. Heart size is normal.
[2020-01-13] MEDS: LORazepam 2 MG/ML VIAL IV PRN (16:01)
[2020-01-13] MEDS: ENOXAPARIN 40 MG/0.4 ML SQ SCH (17:00)
[2020-01-14] MEDS: FENTANYL CITR 100 MCG/2 ML IV PRN (02:30)
[2020-01-14] MEDS: LORazepam 2 MG/ML VIAL IV PRN (03:20)
[2020-01-14] MEDS: VANCOMYCIN 1.5 GM in NA CHLORIDE 0.9% 500 ML IVPB SCH (04:30)
[2020-01-14 05:49] LABS: ALT/SGPT 47 U/L (12-78); AST/SGOT 40 U/L (15-37); Albumin 2.3 g/dL (3.4-5.0); Alkaline Phosphatase 141 U/L (45-117); BUN Blood Urea Nitrogen 6 mg/dL (7-18); Bicarbonate 25 mmol/L (21-32); Bilirubin Total 0.6 mg/dL (0.2-1.0); Glucose Level 105 mg/dL (74-106); Phosphorus 2.3 mg/dL (2.5-4.9); Potassium 3.1 mmol/L (3.5-5.1); Protein, Total 5.8 g/dL (6.4-8.2); Sodium Level 141 mmol/L (136-145)
[2020-01-14 06:00] LABS: Absolute Lymphocytes (CBC) 0.8 K/uL (0.7-4.9); Basophils % 0.3 % (0-1.3); Hematocrit 41.7 % (39.6-49.0); RBC Red Blood Cell Count 4.19 M/uL (4.33-5.43)
[2020-01-14] MEDS: CEFEPIME/SWI 1gm 10 ML IV SCH (06:02)
[2020-01-14] MEDS ORDERED: POTASSIUM PHOS IN 0.9 % NACL 15 MMOL/250 ML BAG IV ONE (07:30)
[2020-01-14] MEDS ORDERED: POTASSIUM 25 MEQ EFFERV TAB PO ONE (07:30)
[2020-01-14] MEDS: FAMOTIDINE 20 MG/2 ML VIAL IV SCH ×2 (08:11→20:00)
[2020-01-14] MEDS: THIAMINE 200 MG/2 ML INJ IVP SCH (08:11)
[2020-01-14] MEDS: IPRATROPIUM BROM 0.5MG/2.5ML NEB PRN ×2 (10:10→16:00)
[2020-01-14] MEDS: ALBUTEROL 2.5 MG/3 ML NEB SOL NEB PRN ×2 (10:10→16:00)
[2020-01-14] MEDS: D5.45NS W/KCL 20MEQ 20 MEQ/1,000 ML BAG IV SCH (11:40)
--- NOTE | 2020-01-14 11:53 | P.PN ---
Subjective Date of Service: 01/14/20 Chief Complaint: Unresponsive Subjective: No new changes (- still intubated , off sedation since last 6 hrs - still drowsy - open eyes with hard stimulus but not following commands) Physical Examination - Vital Signs Temperature: 97.2 F Blood Pressure: 103/86 Pulse: 90 Respirations: 15 Pulse Ox (%): 96 - Physical Exam General: Unresponsive, Comatose HEENT: Atraumatic, Normocephalic, Other (fading periobrital edema ) Neck: 2+ carotid pulse no bruit Respiratory: Clear to auscultation bilaterally, Normal air movement Cardiovascular: Regular rate/rhythm, Normal S1 S2 Gastrointestinal: Normal bowel sounds, Soft and benign, Non-distended - Studies Microbiology Data (last 24 hrs): 01/11/20 23:25 Throat Culture & Sensitivity - Final 01/11/20 23:25 Nasopharnyx Coronavirus COVID-19 PCR - Final Medications List Reviewed: Yes Assessment And Plan - Current Problems (Diagnosis) (1) Acute respiratory failure Current Visit: Yes Status: Acute Qualifiers: Respiratory failure complication: hypoxia and hypercapnia Qualified Code(s): J96.01 - Acute respiratory failure with hypoxia; J96.02 - Acute respiratory failure with hypercapnia (2) Hypothermia Current Visit: Yes Status: Acute (3) Metabolic encephalopathy Current Visit: Yes Status: Acute (4) Respiratory depression Current Visit: Yes Status: Acute Physician Review: Patient Assessed, Agree with Above Assessment and Plan Physician Review Additional Text: # Metabolic encephalopathy - still persistent -still drowsys -c/w IVF nd diuretics for periobital edema -may be due to benzodiazepine intoxication given. urine toxicology - follow blood cx to r/o sepsis # acute respiratory failure - still drowsy -c/w low fio02 needs - plan for extubation when more awake today if feasible -intubated for airway protection. -continue to wean FiO2 settings - following pulmonary # history of tobacco use-start nicotine patch. # hypertension/fluid overload -LASIX X1 TODAY # DVT prophylaxis. Subcutaneous heparin. Advanced directives-remains full code family -sister d/w
[2020-01-14] MEDS: ENOXAPARIN 40 MG/0.4 ML SQ SCH (17:03)
[2020-01-14] MEDS: HALOPERIDOL LACT 5 MG/ML INJ IV PRN (20:19)
[2020-01-14] MEDS ORDERED: LORazepam 2 MG/ML VIAL IV ONE (22:08)
[2020-01-14] MEDS ORDERED: LORazepam 2 MG/ML VIAL ONE (22:18)
[2020-01-15] MEDS: HALOPERIDOL LACT 5 MG/ML INJ IV PRN ×3 (01:32→20:51)
[2020-01-15 05:08] LABS: Absolute Lymphocytes (CBC) 0.8 K/uL (0.7-4.9); Basophils % 0.6 % (0-1.3); Hematocrit 39.5 % (39.6-49.0); Lymphocytes % 9.4 % (15.3-44.8); MPV 10.1 fL (7.6-11.3); RBC Red Blood Cell Count 4.08 M/uL (4.33-5.43)
[2020-01-15 06:35] LABS: ALT/SGPT 41 U/L (12-78); AST/SGOT 35 U/L (15-37); Albumin 2.4 g/dL (3.4-5.0); Alkaline Phosphatase 151 U/L (45-117); BUN Blood Urea Nitrogen 4 mg/dL (7-18); Bicarbonate 24 mmol/L (21-32); Bilirubin Total 0.6 mg/dL (0.2-1.0); Glucose Level 324 mg/dL (74-106); Potassium 4.7 mmol/L (3.5-5.1); Sodium Level 138 mmol/L (136-145)
[2020-01-15 07:28] LABS: Magnesium 1.7 mg/dL (1.8-2.4); Phosphorus 2.5 mg/dL (2.5-4.9)
[2020-01-15] MEDS ORDERED: WATER FOR INJ,STERILE 10 ML IM PRN (08:32)
[2020-01-15] MEDS: THIAMINE 200 MG/2 ML INJ IVP SCH (09:29)
[2020-01-15] MEDS ORDERED: MAGNESIUM SULFATE 1 gm IVPB 1 GM/100 ML BAG IV ONE (09:32)
[2020-01-15] MEDS: D5.45NS W/KCL 20MEQ 20 MEQ/1,000 ML BAG IV SCH (10:51)
--- NOTE | 2020-01-15 13:34 | P.PN ---
Subjective Date of Service: 01/15/20 Primary Care Provider: none Chief Complaint: Unresponsive Subjective: Other (Patient admits alcohol, tobacco and illegal drug use. Patient is less confused. Slight agitation noted.) Physical Examination - Vital Signs Temperature: 98.7 F Blood Pressure: 161/91 Pulse: 79 Respirations: 21 Pulse Ox (%): 100 - Physical Exam General: Alert, Other (Slight agitation noted. Patient more alert today than yesterday.) HEENT: Atraumatic Neck: Supple Respiratory: Clear to auscultation bilaterally, Normal air movement Cardiovascular: Normal pulses, Regular rate/rhythm Gastrointestinal: Normal bowel sounds, No masses, No rebound, No guarding Neurological: Normal speech, Normal strength at 5/5 x4 extr, Normal tone, Normal affect - Studies Microbiology Data (last 24 hrs): 01/11/20 23:25 Throat Culture & Sensitivity - Final Medications List Reviewed: Yes Assessment & Plan Discharge Plan: Home Plan to discharge in: 24 Hours Physician Review Additional Text: Impression: Acute respiratory failure likely related to benzodiazepine over use versus illegal drug use Metabolic encephalopathy related to above History of tobacco abuse History of illegal drug use History of alcohol abuse History of hypertension Plan: Acute respiratory failure likely related to benzodiazepine over use versus illegal drug use: Patient more alert today. Slight agitation. Will need to monitor for alcohol withdrawal. Patient admits tobacco, alcohol and illegal drug use. Patient reports that he was recently around some people that was smoking illegal substance. Suspect acute respiratory failure and altered mental status related to this. Patient extubated yesterday. What physical therapy ambulate. Will provide medication for agitation. Anticipate improvement over the next 24 hr with possible discharge at that time. Metabolic encephalopathy related to above: Improved. No evidence of infection. Will monitor closely. This may be related to illegal drug use. History of tobacco abuse: Provide nicotine patch History of illegal drug use: Patient admits to illegal drug use in the past. Patient was around some people that was using some type of illegal substance. History of alcohol abuse: Will need to monitor for alcohol withdrawal. Will start Librium 3 times a day. Will provide Ativan as needed. History of hypertension: Will monitor blood pressure. Will provide IV medication. May need to start medication. Time Spent Managing Pts Care (In Minutes): 55
[2020-01-15] MEDS: chlordiazePOXIDE HCl 25 MG CAP PO SCH ×2 (13:55→19:19)
[2020-01-15] MEDS: LORazepam 2 MG/ML VIAL IV PRN ×4 (13:55→21:07)
[2020-01-15] MEDS: ZIPRASIDONE MESYLA 20 MG/VIAL IM PRN ×2 (14:26→19:28)
[2020-01-15] MEDS ORDERED: WATER FOR INJ,STERILE 10 ML ONE (14:33)
[2020-01-15] MEDS: ENOXAPARIN 40 MG/0.4 ML SQ SCH (16:11)
[2020-01-16 05:26] LABS: Absolute Lymphocytes (CBC) 0.8 K/uL (0.7-4.9); Basophils % 0.6 % (0-1.3); Hematocrit 41.6 % (39.6-49.0); Lymphocytes % 12.4 % (15.3-44.8); RBC Red Blood Cell Count 4.23 M/uL (4.33-5.43)
[2020-01-16 05:31] LABS: ALT/SGPT 42 U/L (12-78); AST/SGOT 35 U/L (15-37); Albumin 2.7 g/dL (3.4-5.0); Alkaline Phosphatase 169 U/L (45-117); BUN Blood Urea Nitrogen 6 mg/dL (7-18); Bicarbonate 25 mmol/L (21-32); Bilirubin Total 0.6 mg/dL (0.2-1.0); Glucose Level 97 mg/dL (74-106); Magnesium 2.2 mg/dL (1.8-2.4); Potassium 3.3 mmol/L (3.5-5.1); Protein, Total 6.5 g/dL (6.4-8.2); Sodium Level 141 mmol/L (136-145)
[2020-01-16] MEDS ORDERED: POTASSIUM 25 MEQ EFFERV TAB PO ONE (06:00)
[2020-01-16 06:46] VITALS: BMI 3515.0
[2020-01-16] MEDS: chlordiazePOXIDE HCl 25 MG CAP PO SCH ×2 (08:06→13:47)
[2020-01-16] MEDS ORDERED: THIAMINE HCL 100 MG TABLET PO SCH (09:00)
[2020-01-16] MEDS ORDERED: FOLIC ACID 1 MG TABLET PO SCH (09:00)
[2020-01-16] MEDS ORDERED: NICOTINE 21 MG/PAT TD SCH (09:00)
[2020-01-16 09:02] VITALS: O2SAT 95
--- NOTE | 2020-01-16 11:06 | P.DS ---
Admission Date: 01/12/20 Discharge Date: 01/16/20 Primary Care Provider: none Disposition: ROUTINE DISCHARGE Discharge Condition: GOOD Reason for Admission: Unresponsive Consultations: Pulmonary-Dr. Joe Procedures: CT Head: FINDINGS: CT head: No acute intracranial hemorrhage identified. No mass, mass effect, shift of the midline, abnormal extra-axial fluid collection or CT evidence of acute ischemic change identified. The ventricular system is unremarkable. Scattered areas of hypodensity in the supratentorial white matter are nonspecific and may represent sequela of chronic small vessel ischemic change. The visualized paranasal sinuses and the mastoids are clear. No skull fracture identified. Visualized orbits and globes are unremarkable. Cervical CT: Straightening of the cervical lordosis may be secondary to patient position. The atlantoaxial, atlantodental, and occipitoatlantal intervals are preserved. No acute fracture of the cervical spine. Vertebral body height preserved. Prevertebral soft tissues are unremarkable. Mild to moderate multilevel loss of intervertebral disc height with endplate spondylosis, facet arthropathy, and uncovertebral spurring. Mild multilevel osseous neural foraminal narrowing. Visualized skull base is intact. No fracture of the visualized facial bones. Visualized mastoid air cells and paranasal sinuses are well aerated. Visualized thyroid is unremarkable. Partial visualization of endotracheal tube. No cervical lymphadenopathy. No pneumothorax in the visualized lung apices. IMPRESSION: 1. No acute intracranial abnormality. 2. No acute fracture or subluxation of the cervical spine. 3. Mild multilevel degenerative change of the cervical spine. CT AB: COMPARISON: Chest radiograph of the same day. FINDINGS: PULMONARY ARTERIES: Unremarkable. No pulmonary embolism. AORTA: No acute findings. No thoracic aortic aneurysm. LUNGS: Interlobular septal thickening bilaterally. Dependent subsegmental atelectasis and/or scarring. No focal consolidation. PLEURAL SPACE: Unremarkable. No significant effusion. No pneumothorax. HEART: The heart is mildly enlarged. No pericardial effusion. No evidence of RV dysfunction. BONES/JOINTS: No acute fracture. No dislocation. SOFT TISSUES: Unremarkable. LYMPH NODES: Unremarkable. No enlarged lymph nodes. GALLBLADDER AND BILE DUCTS: Prior cholecystectomy. TUBES, LINES AND DEVICES: Partially seen endotracheal tube. IMPRESSION: 1. No pulmonary embolism. 2. Mild cardiomegaly and interstitial edema. 3. Dependent subsegmental atelectasis and bibasilar scarring. Underlying infectious process cannot be excluded although considered less likely. Medical Problem List: Acute respiratory failure likely related to benzodiazepine overuse versus illegal drug use Metabolic encephalopathy related to above History of tobacco abuse History of illegal drug use History of alcohol abuse History of hypertension Brief History of Present Illness: 54-year-old male with history of alcohol, tobacco abuse. Patient was found unresponsive at home. Patient was found to be hypothermic with acute respiratory failure. Patient required intubation. Patient admitted to ICU for further evaluation. Patient was found positive for benzodiazepine. Hospital Course: Patient presented to the ER on responsive with acute respiratory failure. Patient found have positive drug screen for benzodiazepine. Patient required intubation. Patient also had metabolic encephalopathy related to above. Patient with history of tobacco, alcohol and drug abuse in the past. The patient did well during the course of his stay. CT head unremarkable. CT chest showed no pulmonary embolism or pneumonia. The patient was eventually extubated and seen by pulmonology. No evidence of infection noted. No further intervention was required. After further evaluation and investigation of patient's history, there has been a great deal of stress at home. Increase soc ial issues noted. There is some concern that the patient may have over used benzodiazepine or this was given by 1 of his friends. He does report that he hangs around people that abuse drugs. Due to his history of alcohol abuse, the patient was started on Librium during his stay. The patient has done well. Patient appears to be at his baseline level. Patient is able to walk appropriately. Fall precautions recommended. At discharge patient will continue with thiamine 100 mg daily and nicotine patch daily. Alcohol, tobacco and illegal drug use addressed in detail. This included cessation education. Patient will be discharged home. Recommend to establish care with a local PCP to follow up this hospitalization. Due to his alcohol history and plan to continue alcohol, patient will not require Librium at discharge. Education on alcohol cessation will be provided. Patient may benefit with psychiatric evaluation as an outpatient to further address underlying social issues. Vital Signs/Physical Exam: Temp Pulse Resp BP Pulse Ox 97.9 F 81 15 135/76 96 01/16/20 04:00 01/16/20 05:58 01/16/20 05:58 01/16/20 05:58 01/16/20 05:58 General: Alert, In no apparent distress, Oriented x3, Cooperative, Other (Patient more alert and able to walk appropriately.) HEENT: Atraumatic Neck: Supple Respiratory: Clear to auscultation bilaterally, Normal air movement Cardiovascular: Normal pulses, Regular rate/rhythm Gastrointestinal: Normal bowel sounds, Soft and benign, Non-distended, No tenderness, No masses, No rebound, No guarding Musculoskeletal: No erythema, No tenderness, No warmth Integumentary: No tenderness/swelling, No erythema, No warmth, No cyanosis Neurological: Normal speech, Normal strength at 5/5 x4 extr, Normal tone, Normal affect Laboratory Data at Discharge: WBC 6.8 K/uL (4.3-10.9) D 01/16/20 04:39 Hgb 14.0 g/dL (13.6-17.9) 01/16/20 04:39 Hct 41.6 % (39.6-49.0) 01/16/20 04:39 Plt Count 157 K/uL (152-406) D 01/16/20 04:39 PT 11.8 SECONDS (9.5-12.5) 01/12/20 03:45 INR 1.00 01/12/20 03:45 APTT 27.1 SECONDS (24.3-36.9) 01/11/20 23:10 Sodium 141 mmol/L (136-145) 01/16/20 04:39 Potassium 3.3 mmol/L (3.5-5.1) L 01/16/20 04:39 BUN 6 mg/dL (7-18) L 01/16/20 04:39 Creatinine 0.70 mg/dL (0.55-1.3) 01/16/20 04:39 Glucose 97 mg/dL (74-106) 01/16/20 04:39 Phosphorus 2.5 mg/dL (2.5-4.9) 01/15/20 05:50 Magnesium 2.2 mg/dL (1.8-2.4) D 01/16/20 04:39 Total Bilirubin 0.6 mg/dL (0.2-1.0) 01/16/20 04:39 AST 35 U/L (15-37) 01/16/20 04:39 ALT 42 U/L (12-78) 01/16/20 04:39 Alkaline Phosphatase 169 U/L (45-117) H 01/16/20 04:39 Troponin I 0.06 ng/mL (0.0-0.045) H 01/12/20 23:59 Home Medications: Nicotine [Nicoderm*] 21 mg TD DAILY #30 patch.td24 01/16/20 Thiamine HCl [Vitamin B-1*] 100 mg PO DAILY #90 tablet 01/16/20 New Medications: Nicotine [Nicoderm*] 21 mg TD DAILY #30 patch.td24 Thiamine HCl [Vitamin B-1*] 100 mg PO DAILY #90 tablet Patient Discharge Instructions: 1. Recommend to establish care with a PCP in the local area to follow up this hospitalization. 2. Provide education on tobacco, alcohol and illegal drug use cessation. 3. Please go over patient instructions, recommendations and medications. 4. Fall precautions in place. Diet: AHA Activity: Fall precautions Time spent managing pt's care (in minutes): 55
[2020-01-16 13:54] VITALS: BP 139/84; TEMP 98.3
== END 2020-01-16 14:28 | disposition home or self-care (01) | DRG 917 ==
LOC: ER 23:00 → ERHOLD 01-12 02:53 → 3RD-ICU 01-12 07:43
PROVIDERS: ADMIT Internal Medicine; ATTEND Family Medicine
PROC: 5A1945Z Respiratory Ventilation, 24-96 Consecutive Hours (ICD-10-PCS; principal; 2020-01-12)
PROC: 0BH17EZ Insertion of Endotracheal Airway into Trachea, Via Natural or Artificial Opening (ICD-10-PCS; 2020-01-12)
DX: T42.4X1A Poisoning by benzodiazepines, accidental (unintentional), initial encounter (principal); J96.01 Acute respiratory failure with hypoxia; J96.02 Acute respiratory failure with hypercapnia; G92 Toxic encephalopathy; R40.20 Unspecified coma; I95.9 Hypotension, unspecified; E87.70 Fluid overload, unspecified; I10 Essential (primary) hypertension; T68.XXXA Hypothermia, initial encounter; Z20.828 Contact with and (suspected) exposure to other viral communicable diseases
CPT/HCPCS: 31500; 36415; 51702; 70450; 71045; 71275; 72125; 80048; 80053; 80076; 80202; 80307; 80320; 80329; 81003; 82805; 82947; 83605; 83735; 83880; 84100; 84132; 84439; 84443; 84484; 85025; 85379; 85610; 85730; 87040; 87070; 87081; 87804; 93005; 94002; 94003; 96365; 96366; 96368; 96375; 99291; 99292; J0330; J0692; J1630; J1650; J1940; J2543; J2704; J3010; J3411; J3475; J3486; J7030; J7040; J7042; Q9967; U0002

== ENCOUNTER 2021-01-13 16:13 | Emergency (ER) | payer SELFPAY ==
[2021-01-13] MEDS ORDERED: CEFEPIME/SWI 1gm 10 ML ONE (18:58)
--- NOTE | 2021-01-13 19:08 | RAD REPORT ---
EXAM DESCRIPTION: RAD - Tib Fib Left - 01/13/2021 6:51 pm CLINICAL HISTORY: Left leg pain and swelling COMPARISON: None. FINDINGS: No fracture is identified. There is no dislocation or periosteal reaction noted. No acute or suspicious bony finding. Soft tissue swelling is present anterior and lateral ankle. Left foot is separately detailed. IMPRESSION: Distal left leg soft tissue swelling without acute bone or joint finding.
--- NOTE | 2021-01-13 19:09 | RAD REPORT ---
EXAM DESCRIPTION: RAD - Foot Left 3 View - 01/13/2021 6:51 pm CLINICAL HISTORY: Pain;Swelling COMPARISON: No comparisons FINDINGS: No fracture, dislocation or periosteal reaction. No acute or destructive bony process. Fi rst MTP joint degenerative changes are present. Very minimal spurring at the Achilles attachment. No plantar spur. No air or foreign body in the soft tissues. Soft tissue swelling is present over the dorsum of the fo ot. IMPRESSION: Left foot soft tissue swelling without acute bone or joint finding.
[2021-01-13] MEDS ORDERED: NA CHLORIDE 0.9% 1,000 ML ONE (19:19)
[2021-01-13 19:34] LABS: Absolute Lymphocytes (CBC) 1.7 K/uL (0.7-4.9); Basophils % 0.6 % (0-1.3); Hematocrit 46.3 % (39.6-49.0); Lymphocytes % 14.2 % (15.3-44.8); MPV 9.4 fL (7.6-11.3); RBC Red Blood Cell Count 4.82 M/uL (4.33-5.43)
[2021-01-13 19:39] LABS: Protime INR 0.97
[2021-01-13] MEDS ORDERED: VANCOMYCIN 1 GM/VIAL ONE (19:46)
[2021-01-13] MEDS ORDERED: NA CHLORIDE 0.9% 250 ML ONE ×2 (19:47→19:50)
[2021-01-13 19:50] LABS: ALT/SGPT 50 U/L (12-78); Albumin 3.6 g/dL (3.4-5.0); Alkaline Phosphatase 167 U/L (45-117); BUN Blood Urea Nitrogen 7 mg/dL (7-18); Bicarbonate 25 mmol/L (21-32); Bilirubin Direct 0.2 mg/dL (0-0.2); Bilirubin Total 0.8 mg/dL (0.2-1.0); Glucose Level 90 mg/dL (74-106); Protein, Total 8.5 g/dL (6.4-8.2); Sodium Level 133 mmol/L (136-145)
[2021-01-13 19:51] LABS: AST/SGOT 32 U/L (15-37); Potassium 3.6 mmol/L (3.5-5.1)
--- NOTE | 2021-01-13 19:51 | RAD REPORT ---
EXAM DESCRIPTION: US - Extremity Venous Uni Ltd - 01/13/2021 7:19 pm CLINICAL HISTORY: Pain;Swelling COMPARISON: None. TECHNIQUE: Real-time sonographic evaluation of the left lower extremity deep venous system was perfo rmed. FINDINGS: Normal compressibility, flow augmentation, phasic flow and spontaneous flow are identified in the left lower extremity common femoral, superficial femoral, popliteal and posterior tibial vein s. No intraluminal filling defects seen. Several lymph nodes are present in the left groin, nonspecific. IMPRESSION: No DVT in the left lower extremity.
--- NOTE | 2021-01-13 21:59 | ER ---
Nurse's Notes [facility] Name: Sheldon Cano Age: 55 yrs Sex: Male : 1965 Arrival Date: 01/13/2021 Time: 16:17 Bed 25 [facility] MD: Diagnosis: Cellulitis of left lower limb Presentation: 01/13 16:37 Chief complaint: Patient states: "[place]. by jd3 Wednesday evening I was vomiting and my left foot was very swollen.". Coronavirus screen: At this time, the client does not indicate any symptoms associated with coronavirus-19. Ebola Screen: Patient negative for fever greater than or equal to 101.5 degrees Fahrenheit, and additional compatible Ebola Virus Disease symptoms. Initial Sepsis Screen: Does the patient meet any 2 criteria? No. Patient's initial sepsis screen is negative. Does the patient have a suspected source of infection? No. Patient's initial sepsis screen is negative. Risk Assessment: Do you want to hurt yourself or someone else? Patient reports no desire to harm self or others. Onset of symptoms was January 10, 2021. 16:37 Method Of Arrival: Ambulatory jd3 16:37 Acuity: JARED 3 jd3 Historical: - Allergies: 16:41 No Known Allergies; jd3 - Home Meds: 16:41 None [Active]; jd3 - PMHx: 16:41 None; jd3 - PSHx: 16:41 Hernia repair; Cholecystectomy; right knee; left hand; jd3 - Immunization history:: Adult Immunizations up to date, Client reports having NOT received the Covid vaccine. - Social history:: Smoking status: Patient reports the use of cigarette tobacco products, smokes two packs cigarettes per day. Screenin:08 Abuse screen: Denies threats or abuse. Nutritional screening: No deficits noted. vg1 Tuberculosis screening: No symptoms or risk factors identified. Fall Risk No fall in past 12 months (0 pts). No secondary diagnosis (0 pts). IV access (20 points). Ambulatory Aid- None/Bed Rest/Nurse Assist (0 pts). Gait- Normal/Bed Rest/Wheelchair (0 pts) Mental Status- Oriented to own ability (0 pts). Total Sterling Fall Scale indicates No Risk (0-24 pts). Assessment: 18:28 General: Appears in no apparent distress. comfortable, Behavior is calm, cooperative. vg1 Pain: Complains of pain in left foot Pain currently is 2 out of 10 on a pain scale. at worst was 6 out of 10 on a pain scale. Pain began 2-3 days ago. Neuro: Level of Consciousness is awake, alert, obeys commands, Oriented to person, place, time, situation. Cardiovascular: Patient's skin is warm and dry. Respiratory: Airway is patent Respiratory effort is even, unlabored. GI: No signs and/or symptoms were reported involving the gastrointestinal system. : No signs and/or symptoms were reported regarding the genitourinary system. EENT: No signs and/or symptoms were reported regarding the EENT system. Derm: Skin is intact, Skin is red, to left foot. Musculoskeletal: Swelling present in left foot. 19:36 Reassessment: Patient appears in no apparent distress at this time. No changes from vg1 previously documented assessment. Patient and/or family updated on plan of care and expected duration. Pain level reassessed. Patient is alert, oriented x 3, equal unlabored respirations, skin warm/dry/pink. 20:39 Reassessment: Patient appears in no apparent distress at this time. No changes from vg1 previously documented assessment. Patient and/or family updated on plan of care and expected duration. Pain level reassessed. Patient is alert, oriented x 3, equal unlabored respirations, skin warm/dry/pink. Provider at bedside. 21:42 Reassessment: Patient appears in no apparent distress at this time. No changes from vg1 previously documented assessment. Patient and/or family updated on plan of care and expected duration. Pain level reassessed. Patient is alert, oriented x 3, equal unlabored respirations, skin warm/dry/pink. Pt states does not want to be admitted, stated 'I want to go home and I'll keep an eye on my leg". Provider notified. Vital Signs: 16:41 BP 134 / 91; Pulse 81; Resp 16 S; Temp 98.9(TE); Pulse Ox 97% on R/A; Weight 84.82 kg jd3 (R); Height 6 ft. 1 in. (185.42 cm) (R); Pain 3/10; 19:00 BP 138 / 91; Pulse 78; Resp 16; Pulse Ox 100% on R/A; vg1 20:00 BP 135 / 81; Pulse 75; Resp 16; Pulse Ox 100% ; vg1 21:00 BP 123 / 79; Pulse 76; Resp 16; Pulse Ox 100% on R/A; vg1 16:41 Body Mass Index 24.67 (84.82 kg, 185.42 cm) jd3 ED Course: 16:17 Patient arrived in ED. ds1 16:39 Triage completed. jd3 16:42 Arm band placed on. jd3 18:02 Brandan Miller, DELFINA is PHCP. pm1 18:02 Kailash Bailey MD is Attending Physician. pm1 18:35 Dali Ramsey, ANDRZEJ is Primary Nurse. vg1 18:46 Inserted saline lock: 20 gauge in left antecubital area, using aseptic technique. Blood vg1 collected. 18:47 Initial lab(s) drawn, by me, sent to lab. First set of blood cultures drawn by me. vg1 18:51 Foot Left 3 View XRAY In Process Unspecified. EDMS 18:51 Tib Fib Left XRAY In Process Unspecified. EDMS 19:08 Patient has correct armband on for positive identification. Bed in low position. Call vg1 light in reach. Side rails up X 1. Adult w/ patient. 19:19 Extremity Venous Uni Ltd US In Process Unspecified. EDMS 22:17 No provider procedures requiring assistance completed. IV discontinued, intact, vg1 bleeding controlled, No redness/swelling at site. Pressure dressing applied. Administered Medications: 19:00 Drug: NS 0.9% 1000 ml Route: IV; Rate: 1000 ml; Site: left antecubital; vg1 20:00 Follow up: IV Status: Completed infusion; IV Intake: 1000ml vg1 19:01 Drug: Cefepime 1 grams Route: IVPB; Rate: 200 ml/hr; Infused Over: 30 mins; Site: left vg1 antecubital; 19:35 Follow up: Response: No adverse reaction; IV Status: Completed infusion vg1 19:34 Drug: vancoMYCIN 1 grams Route: IVPB; Infused Over: 2 hrs; Site: left antecubital; vg1 21:50 Follow up: IV Status: Completed infusion; IV Intake: 250ml vg1 Intake: 20:00 IV: 1000ml; Total: 1000ml. vg1 21:50 IV: 250ml; Total: 1250ml. vg1 Outcome: 22:17 Discharged to home ambulatory. vg1 22:17 Condition: stable 22:17 Discharge instructions given to patient, Instructed on discharge instructions, follow up and referral plans. medication usage, Demonstrated understanding of instructions, follow-up care, medications, Prescriptions given X 2. 22:17 Patient left the ED. vg1 Signatures: Dispatcher [employer] Cleaning, Ilda ds1 Brandan Miller, ARCHITECT IN TRAINING ARCHITECT IN TRAINING pm1 Brian Chambers RN RN Dali Earl RN RN vg1 Corrections: (The following items were deleted from the chart) 19:37 19:06 BP 130 / 84; Pulse 76bpm; Resp 16bpm; Pulse Ox 100%; vg1 vg1
--- NOTE | 2021-01-13 21:59 | EDPHYS ---
Physician Documentation [facility] Name: Sheldon Cano Age: 55 yrs Sex: Male : 1965 Arrival Date: 01/13/2021 Time: 16:17 Bed 25 Private MD: ED Physician Kailash Bailey HPI: 01/13 18:29 This 55 yrs old Male presents to ER via Ambulatory with complaints of Left pm1 Foot Swelling. 18:29 The patient presents with pain, swelling. The complaints affect the left riley, anterior pm1 aspect of left ankle and dorsum of left foot. Context: The problem was sustained at home, resulted from an unknown cause, was walking in the water at the beach, the patient can partially bear weight, the patient is able to ambulate, with moderate difficulty, Problem is a result from a previous injury: No. Onset: The symptoms/episode began/occurred 2 day(s) ago. Modifying factors: The symptoms are alleviated by elevating leg, the symptoms are aggravated by weight bearing, dependent positioning. Associated signs and symptoms: Pertinent positives: Fever, chills, nausea, and vomiting on Wednesday which has resolved but swelling and pain to left lower extremity has gotten worse. Treatment prior to arrival includes: no previous treatment. Severity of symptoms: in the emergency department the symptoms are actually worse. The patient has not experienced similar symptoms in the past. The patient has not recently seen a physician. Historical: - Allergies: 16:41 No Known Allergies; jd3 - Home Meds: 16:41 None [Active]; jd3 - PMHx: 16:41 None; jd3 - PSHx: 16:41 Hernia repair; Cholecystectomy; right knee; left hand; jd3 - Immunization history:: Adult Immunizations up to date, Client reports having NOT received the Covid vaccine. - Social history:: Smoking status: Patient reports the use of cigarette tobacco products, smokes two packs cigarettes per day. Vital Signs: 16:41 BP 134 / 91; Pulse 81; Resp 16 S; Temp 98.9(TE); Pulse Ox 97% on R/A; Weight 84.82 kg jd3 (R); Height 6 ft. 1 in. (185.42 cm) (R); Pain 3/10; 19:00 BP 138 / 91; Pulse 78; Resp 16; Pulse Ox 100% on R/A; vg1 20:00 BP 135 / 81; Pulse 75; Resp 16; Pulse Ox 100% ; vg1 21:00 BP 123 / 79; Pulse 76; Resp 16; Pulse Ox 100% on R/A; vg1 16:41 Body Mass Index 24.67 (84.82 kg, 185.42 cm) jd3 MDM: 18:02 Patient medically screened. pm1 21:46 Data reviewed: vital signs. Data interpreted: Pulse oximetry: on room air is 100 %. pm1 Interpretation: normal. 21:58 Refusal of service: The patient/guardian displays adequate decision making capability pm1 and despite a detailed discussion of alternatives, benefits, risks, and consequences refuses: Admission to the hospital for further work-up and treatment. 01/13 18:14 Order name: CORONAVIRUS (COVID-19) : Document "Date of Symptom Onset" if Symptomatic. pm1 01/13 18:14 Order name: Basic Metabolic Panel pm1 01/13 18:14 Order name: Blood Culture Adult (2) pm1 01/13 18:14 Order name: CBC with Diff; Complete Time: 20:02 pm01/13 18:14 Order name: Lactate; Complete Time: 20:02 pm1 01/13 18:14 Order name: LFT's; Complete Time: 20:02 pm01/13 18:14 Order name: Foot Left 3 View XRAY; Complete Time: 19:12 pm01/13 18:14 Order name: Tib Fib Left XRAY; Complete Time: 19:12 pm1 01/13 18:14 Order name: Procalcitonin; Complete Time: 20:31 pm1 01/13 18:14 Order name: Protime (+inr); Complete Time: 20:02 pm01/13 18:14 Order name: Ptt, Activated; Complete Time: 20:02 pm01/13 18:14 Order name: CORONAVIRUS EDKY 01/13 18:14 Order name: Basic Metabolic Panel; Complete Time: 20:02 EDKY 01/13 18:14 Order name: Blood Culture [facility] 01/13 18:14 Order name: Extremity Venous Uni Ltd US; Complete Time: 20:02 pm01/13 18:14 Order name: Labs collected and sent; Complete Time: 18:56 pm1 01/13 18:14 Order name: IV Saline Lock; Complete Time: 18:56 pm1 Administered Medications: 19:00 Drug: NS 0.9% 1000 ml Route: IV; Rate: 1000 ml; Site: left antecubital; vg1 20:00 Follow up: IV Status: Completed infusion; IV Intake: 1000ml vg1 19:01 Drug: Cefepime 1 grams Route: IVPB; Rate: 200 ml/hr; Infused Over: 30 mins; Site: left vg1 antecubital; 19:35 Follow up: Response: No adverse reaction; IV Status: Completed infusion vg1 19:34 Drug: vancoMYCIN 1 grams Route: IVPB; Infused Over: 2 hrs; Site: left antecubital; vg1 21:50 Follow up: IV Status: Completed infusion; IV Intake: 250ml vg1 Disposition: 01/13/21 21:59 Patient has left against medical advice. Impression: Cellulitis of left lower limb. - Patients states they are going to Home. - Condition is Undetermined. - Discharge Instructions: Cellulitis, Adult. - Prescriptions for Doxycycline Hyclate 100 mg Oral Tablet - take 1 tablet by ORAL route every 12 hours; 20 tablet. Bactrim DS 800- 160 mg Oral Tablet - take 1 tablet by ORAL route every 12 hours for 10 days; 20 tablet. Follow up: Emergency Department; When: As needed; Reason: Worsening of condition. Follow up: Private Physician; When: Upon discharge from the Emergency Department; Reason: Recheck today's complaints, Continuance of care, Re-evaluation by your physician. - Problem is new. - Symptoms have improved. Addendum: 01/14/2021 09:54 Co-signature as Attending Physician, Kailash Bailey MD. r n Signatures: Dispatcher [employer] Kailash Paris MD MD rn Marinas, Patrick, DELFINA BRASS RECLAIMER pm1 Brian Chambers RN RN jDali Guillen RN RN vg1 Corrections: (The following items were deleted from the chart) 01/13 22:17 21:59 01/13/2021 21:59 Patients has left against medical advice. Impression: Cellulitis vg1 of left lower limb. Patient states they are going to Home. Condition is Undetermined. Follow up: Emergency Department; When: As needed; Reason: Worsening of condition. Follow up: Private Physician; When: Upon discharge from the Emergency Department; Reason: Recheck today's complaints, Continuance of care, Re-evaluation by your physician. Problem is new. Symptoms have improved. pm1
[2021-01-13 22:54] VITALS: TEMP 98.9
[2021-01-13 22:56] VITALS: O2SAT 100
[2021-01-13 22:59] VITALS: BP 123/79
== END 2021-01-13 22:17 | disposition left against medical advice (07) ==
LOC: ER 16:13
DX: L03.116 Cellulitis of left lower limb (principal); Z20.822 Contact with and (suspected) exposure to COVID-19; F17.210 Nicotine dependence, cigarettes, uncomplicated
CPT/HCPCS: 36415; 80048; 80076; 83605; 84145; 85025; 85610; 85730; 87040; 93971; 96365; 96366; 99284; J0692; J3370; J7030; J7050

== ENCOUNTER 2021-01-14 10:57 | Inpatient (IN) | payer SELFPAY ==
--- NOTE | 2021-01-14 11:43 | EDPHYS ---
Physician Documentation [facility] Name: Sheldon Cano Age: 55 yrs Sex: Male : 1965 Arrival Date: 01/14/2021 Time: 11:00 Bed 8 Private MD: ED Physician Kailash Bailey HPI: 01/14 13:38 This 55 yrs old Male presents to ER via Wheelchair with complaints of Foot kb Pain. 13:38 The patient presents with cellulitis of the dorsum of left foot and anterior aspect of kb left ankle. Description: erythematous, hot, swollen. Onset: The symptoms/episode began/occurred 4 day(s) ago. Possible cause(s): unknown. Associated signs and symptoms: Pertinent positives: erythema, fever, swelling. Modifying factors: the symptoms are alleviated by nothing, the symptoms are aggravated by nothing. Severity of symptoms: At their worst the symptoms were moderate, in the emergency department the symptoms are unchanged. The patient has not experienced similar symptoms in the past. The patient has not recently seen a physician. Pt reports cellulitis to left foot started 4 days ago, came in yesterday and was told he needed admission but didn't want to stay. Today pain is worse so he came back. Pt states "I don't want to lose my foot.". Historical: - Allergies: 15:07 PENICILLINS; hb - Home Meds: 15:07 None [Active]; hb - PMHx: 15:07 None; hb - PSHx: 15:07 None; hb - Immunization history:: Adult Immunizations up to date, Client reports having NOT received the Covid vaccine. - Social history:: Smoking status: Patient reports the use of cigarette tobacco products, smokes two packs cigarettes per day. ROS: 12:54 Abdomen/GI: Negative for abdominal pain, nausea, vomiting, diarrhea, and constipation. kb 12:54 Constitutional: Positive for fever, malaise. 12:54 Skin: Positive for cellulitis, of the anterior aspect of left ankle and dorsum of left foot. 12:54 All other systems are negative. Exam: 13:37 Constitutional: This is a well developed, well nourished patient who is awake, alert, kb and in no acute distress. Head/Face: Normocephalic, atraumatic. ENT: Moist Mucous membranes Cardiovascular: Regular rate and rhythm with a normal S1 and S2. No gallops, murmurs, or rubs. No pulse deficits. Respiratory: Respirations even and unlabored. No increased work of breathing, no retractions or nasal flaring. Abdomen/GI: Soft, non-tender. No distention MS/ Extremity: Pulses equal, no cyanosis. Neurovascular intact. Full, normal range of motion. Neuro: Awake and alert, GCS 15, oriented to person, place, time, and situation. Moves all extremities. Normal gait. Psych: Awake, alert, with orientation to person, place and time. Behavior, mood, and affect are within normal limits. 13:37 Skin: cellulitis, that is moderate, on the dorsum of left foot and anterior aspect of left ankle. Vital Signs: 11:14 Resp 16; Weight 82.42 kg (M); Height 6 ft. 0 in. (182.88 cm); Pain 3/10; ss 11:30 BP 127 / 88; Pulse 83; Resp 16 S; Temp 98.0; Pulse Ox 99% on R/A; aa5 13:30 BP 148 / 99; Pulse 86; Resp 15; Pulse Ox 99% on R/A; Pain 8/10; hb 15:00 BP 122 / 81; Pulse 70; Resp 18 S; Pulse Ox 99% on R/A; aa5 11:14 Body Mass Index 24.64 (82.42 kg, 182.88 cm) ss MDM: 11:14 Patient medically screened. kb 12:53 Data reviewed: vital signs, nurses notes. Data interpreted: Pulse oximetry: on room air kb is 99 %. Interpretation: normal. Counseling: I had a detailed discussion with the patient and/or guardian regarding: the historical points, exam findings, and any diagnostic results supporting the discharge/admit diagnosis, lab results, the need for further work-up and treatment in the hospital. Physician consultation: Micheal Aquino MD regarding admission, to the medical/surgical unit. patient's condition, and will see patient shortly. 01/14 11:26 Order name: CBC with Diff; Complete Time: 12:20 kb 01/14 11:26 Order name: Basic Metabolic Panel; Complete Time: 12:20 kb 01/14 12:55 Order name: SARS-COV-2 RT PCR; Complete Time: 13:21 EDMS 01/14 14:04 Order name: Basic Metabolic Panel EDMS 01/14 14:04 Order name: Basic Metabolic Panel EDMS 01/14 14:04 Order name: Protime (+INR) EDMS 01/14 14:04 Order name: CBC with Automated Diff EDMS 01/14 14:04 Order name: CBC with Automated Diff EDMS 01/14 14:04 Order name: Protime (+INR) EDMS 01/14 14:04 Order name: PTT, Activated Partial Thromb EDMS 01/14 14:04 Order name: PTT, Activated Partial Thromb EDMS 01/14 14:05 Order name: Procalcitonin EDMS 01/14 11:26 Order name: IV Start; Complete Time: 11:49 kb 01/14 14:04 Order name: CONS Physician Consult EDMS 01/14 14:04 Order name: Heart Healthy EDMS Administered Medications: 13:30 Drug: Cefepime 1 grams Route: IVPB; Rate: 200 ml/hr; Infused Over: 30 mins; Site: left hb antecubital; 14:00 Follow up: Response: No adverse reaction aa5 13:49 Drug: morphine 4 mg Route: IVP; Site: left antecubital; hb 14:26 Follow up: Response: No adverse reaction; Pain is decreased aa5 13:49 Drug: Zofran (Ondansetron) 4 mg Route: IVP; Site: left antecubital; hb 14:26 Follow up: Response: No adverse reaction aa5 14:25 Drug: vancoMYCIN 1 grams Route: IVPB; Infused Over: 2 hrs; Site: left forearm; aa5 14:50 Follow up: IV Status: Order to discontinue infusion; Pt c/o chest pain and back pain. aa5 No redness or rash noted. Pt reports feeling flushed. Infusion paused and WIDE AREA NETWORK SYSTEMS ADMINISTRATOR was notified. WIDE AREA NETWORK SYSTEMS ADMINISTRATOR at bedside now and pt reports improvement of symptoms right after vancomycin was paused. 15:10 Drug: Pepcid (famotidine) 20 mg Route: IVP; Site: left antecubital; hb 15:15 Follow up: Response: No adverse reaction aa5 Disposition: 16:20 Co-signature as Attending Physician, Kailash Bailey MD. rn Disposition Summary: 01/14/21 11:42 Hospitalization Ordered Hospitalization Status: Inpatient Admission kb Provider: Micheal Aquino Location: Telemetry/MedSurg (Inpatient) kb Condition: Stable kb Problem: new kb Symptoms: are unchanged kb Bed/Room Type: Standard kb Room Assignment: 213(01/14/21 14:23) Diagnosis - Cellulitis of left lower limb kb Forms: - Medication Reconciliation Form kb - SBAR form kb Signatures: Dispatcher [employer] EDHodan Duran, MELVINA-C CIVIL ENGINEER HELPER-Lizzie Eden RN RN Kailash Day MD MD rn Calderon, Audri, RN RN aa5 Tawnya Alcala RN RN ss Jen Watson RN RN Corrections: (The following items were deleted from the chart) 12:03 11:31 CORONAVIRUS+MR.LAB.BRZ ordered. EDCA EDMS 14:23 11:42 kb dw
--- NOTE | 2021-01-14 11:43 | ER ---
Nurse's Notes [facility] Name: Sheldon Cano Age: 55 yrs Sex: Male : 1965 Arrival Date: 01/14/2021 Time: 11:00 Bed 8 Private MD: Diagnosis: Cellulitis of left lower limb Presentation: 01/14 11:14 Chief complaint: Patient states: DX with cellulitis yesterday and left AMA. Pt woke up ss with worsening symptoms and has agreed to be admitted to hospital. Coronavirus screen: Client denies travel out of the [place] in the last 14 days. Ebola Screen: Patient denies exposure to infectious person. Patient denies travel to an Ebola-affected area in the 21 days before illness onset. Initial Sepsis Screen: Does the patient meet any 2 criteria? No. Patient's initial sepsis screen is negative. Does the patient have a suspected source of infection? No. Patient's initial sepsis screen is negative. Risk Assessment: Do you want to hurt yourself or someone else? Patient reports no desire to harm self or others. Onset of symptoms was January 10, 2021. 11:14 Method Of Arrival: Wheelchair ss 11:14 Acuity: JARED 3 ss Historical: - Allergies: 15:07 PENICILLINS; hb - Home Meds: 15:07 None [Active]; hb - PMHx: 15:07 None; hb - PSHx: 15:07 None; hb - Immunization history:: Adult Immunizations up to date, Client reports having NOT received the Covid vaccine. - Social history:: Smoking status: Patient reports the use of cigarette tobacco products, smokes two packs cigarettes per day. Screenin:00 Abuse screen: Denies threats or abuse. Denies injuries from another. Nutritional hb screening: No deficits noted. Tuberculosis screening: No symptoms or risk factors identified. Fall Risk None identified. Assessment: 11:20 General: Appears comfortable, Behavior is calm, cooperative. Pain: Complains of pain in aa5 left leg. Neuro: Level of Consciousness is awake, alert, obeys commands, Oriented to person, place, time, situation. Cardiovascular: Swelling noted to left lower extremity. Respiratory: Airway is patent Respiratory effort is even, unlabored, Respiratory pattern is regular, symmetrical. GI: No signs and/or symptoms were reported involving the gastrointestinal system. : No signs and/or symptoms were reported regarding the genitourinary system. EENT: No signs and/or symptoms were reported regarding the EENT system. Derm: Skin is pink, warm \T\ dry. Redness noted to left lower extremity. Musculoskeletal: Range of motion: intact in all extremities. 12:00 Reassessment: Patient is alert, oriented x 3, equal unlabored respirations, skin aa5 warm/dry/pink. Pt states he does not need medication for pain control at this time. Warm blanket denied. . 13:30 Reassessment: Patient is alert, oriented x 3, equal unlabored respirations, skin aa5 warm/dry/pink. 13:30 Pain: Pain currently is 8 out of 10 on a pain scale. aa5 14:25 Reassessment: Patient is alert, oriented x 3, equal unlabored respirations, skin aa5 warm/dry/pink. Patient states feeling better. Patient states symptoms have improved. 14:50 Reassessment: Patient is alert, oriented x 3, equal unlabored respirations, skin aa5 warm/dry/pink. See MAR note for possible Vancomycin reaction. . 15:00 Reassessment: Patient is alert, oriented x 3, equal unlabored respirations, skin aa5 warm/dry/pink. Patient states feeling better. Patient states symptoms have improved. Pain: Denies pain. 15:10 Reassessment: Dr. Aquino hospitalist was notified of reaction by METALLOGRAPHER. Awaiting call back aa5 from Dr. Aquino. . 16:05 Reassessment: Patient is alert, oriented x 3, equal unlabored respirations, skin aa5 warm/dry/pink. Vital Signs: 11:14 Resp 16; Weight 82.42 kg (M); Height 6 ft. 0 in. (182.88 cm); Pain 3/10; ss 11:30 BP 127 / 88; Pulse 83; Resp 16 S; Temp 98.0; Pulse Ox 99% on R/A; aa5 13:30 BP 148 / 99; Pulse 86; Resp 15; Pulse Ox 99% on R/A; Pain 8/10; hb 15:00 BP 122 / 81; Pulse 70; Resp 18 S; Pulse Ox 99% on R/A; aa5 11:14 Body Mass Index 24.64 (82.42 kg, 182.88 cm) ED Course: 11:00 Patient arrived in ED. ds1 11:14 Hod[facility] Ferro [facility]C [facility]. kb 11:14 Kailash Bailey MD is Attending Physician. kb 11:14 Arm band placed on right wrist. ss 11:20 Patient has correct armband on for positive identification. Bed in low position. Call aa5 light in reach. 11:27 Lore Lu RN is Primary Nurse. aa5 11:42 Triage completed. ss 11:42 Micheal Aquino MD is Hospitalizing Provider. kb 11:47 Inserted saline lock: 20 gauge in left forearm, using aseptic technique. aa5 16:05 No provider procedures requiring assistance completed. Patient admitted, IV remains in aa5 place. Administered Medications: 13:30 Drug: Cefepime 1 grams Route: IVPB; Rate: 200 ml/hr; Infused Over: 30 mins; Site: left hb antecubital; 14:00 Follow up: Response: No adverse reaction aa5 13:49 Drug: morphine 4 mg Route: IVP; Site: left antecubital; hb 14:26 Follow up: Response: No adverse reaction; Pain is decreased aa5 13:49 Drug: Zofran (Ondansetron) 4 mg Route: IVP; Site: left antecubital; hb 14:26 Follow up: Response: No adverse reaction aa5 14:25 Drug: vancoMYCIN 1 grams Route: IVPB; Infused Over: 2 hrs; Site: left forearm; aa5 14:50 Follow up: IV Status: Order to discontinue infusion; Pt c/o chest pain and back pain. aa5 No redness or rash noted. Pt reports feeling flushed. Infusion paused and METALLOGRAPHER was notified. METALLOGRAPHER at bedside now and pt reports improvement of symptoms right after vancomycin was paused. 15:10 Drug: Pepcid (famotidine) 20 mg Route: IVP; Site: left antecubital; hb 15:15 Follow up: Response: No adverse reaction aa5 Intake: Outcome: 11:42 Decision to Hospitalize by Provider. kb 16:05 Admitted to Med/surg accompanied by tech, via stretcher, with chart, Report called to aa5 ANDRZEJ Perry 16:05 Condition: stable 16:05 Instructed on the need for admit, Demonstrated understanding of instructions. 16:11 Patient left the ED. aa5 Signatures: Hodan Ferro, COMMUNITY DEVELOPMENT PLANNER-C COMMUNITY DEVELOPMENT PLANNER-Ckb Ilda Cleaning ds1 Lore Lu RN RN aa5 Tawnya Alcala RN RN Jen Watson RN RN hb Corrections: (The following items were deleted from the chart) 14:27 14:25 Reassessment: Patient is alert, oriented x 3, equal unlabored respirations, skin aa5 warm/dry/pink. aa5 15:16 11:30 BP 127 / 88; Pulse 83bpm; Resp 16bpm; Spontaneous; Pulse Ox 99% RA; aa5 aa5 15:18 12:30 Patient has correct armband on for positive identification. Bed in low position. aa5 Call light in reach. hb 15:19 12:00 Reassessment: Patient is alert, oriented x 3, equal unlabored respirations, skin aa5 warm/dry/pink. aa5
[2021-01-14 11:53] LABS: Absolute Lymphocytes (CBC) 1.1 K/uL (0.7-4.9); Basophils % 0.6 % (0-1.3); Hematocrit 45.3 % (39.6-49.0); Lymphocytes % 10.7 % (15.3-44.8); RBC Red Blood Cell Count 4.71 M/uL (4.33-5.43)
[2021-01-14 12:06] LABS: BUN Blood Urea Nitrogen 7 mg/dL (7-18); Bicarbonate 26 mmol/L (21-32); Glucose Level 129 mg/dL (74-106); Potassium 3.2 mmol/L (3.5-5.1); Sodium Level 137 mmol/L (136-145)
[2021-01-14] MEDS ORDERED: CEFEPIME/SWI 1gm 10 ML ONE (13:55)
[2021-01-14] MEDS ORDERED: ONDANSETRON 4 MG/2 ML VIAL ONE (13:57)
[2021-01-14] MEDS ORDERED: MORPHINE 4 MG/ML SYR ONE (13:57)
[2021-01-14] MEDS ORDERED: HYDROMORPHONE HCL 0.5 MG/0.5 ML INJ IV PRN (14:00)
[2021-01-14] MEDS ORDERED: ACETAMINOPHEN 500 MG TAB PO PRN (14:00)
[2021-01-14] MEDS ORDERED: ONDANSETRON 4 MG/2 ML VIAL IV PRN (14:00)
[2021-01-14] MEDS ORDERED: VANCOMYCIN/NS 1 gm 1 GM/250 ML BAG IVPB SCH (14:00)
[2021-01-14] MEDS ORDERED: Levofloxacin500mg IV 500 MG/100 ML BAG IV SCH (14:00)
[2021-01-14] MEDS: VANCOMYCIN/NS 1 gm 1 GM/250 ML BAG IV ONE ×2 (14:00→17:00)
[2021-01-14] MEDS ORDERED: FAMOTIDINE 20 MG/2 ML VIAL IV ONE (15:24)
[2021-01-14 16:43] VITALS: BMI 23.8
[2021-01-14] MEDS ORDERED: POTASSIUM CL SA 10 MEQ TAB PO ONE (17:14)
[2021-01-14] MEDS: NA CHLORIDE 0.9% 1,000 ML IV SCH (17:15)
[2021-01-14] MEDS: VANCOMYCIN 1.5 GM in NA CHLORIDE 0.9% 500 ML IVPB SCH (20:41)
[2021-01-15 01:16] VITALS: O2SAT 100
[2021-01-15] MEDS: NA CHLORIDE 0.9% 1,000 ML IV SCH ×2 (03:20→15:07)
[2021-01-15 06:08] LABS: Basophils % 0.7 % (0-1.3); Hematocrit 42.3 % (39.6-49.0); Lymphocytes % 14.8 % (15.3-44.8); MPV 9.1 fL (7.6-11.3); RBC Red Blood Cell Count 4.33 M/uL (4.33-5.43)
[2021-01-15 06:20] LABS: Protime INR 1.08
[2021-01-15 06:21] LABS: BUN Blood Urea Nitrogen 6 mg/dL (7-18); Bicarbonate 25 mmol/L (21-32); Glucose Level 98 mg/dL (74-106); Potassium 3.9 mmol/L (3.5-5.1); Sodium Level 137 mmol/L (136-145)
[2021-01-15] MEDS ORDERED: POTASSIUM CL SA 10 MEQ TAB PO ONE (09:00)
[2021-01-15] MEDS: VANCOMYCIN 1.5 GM in NA CHLORIDE 0.9% 500 ML IVPB SCH ×2 (09:51→20:12)
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
[2021-01-15] MEDS ORDERED: NICOTINE 21 MG/PAT TD STA (18:18)
[2021-01-15] MEDS ORDERED: chlordiazePOXIDE HCl 5 MG CAP PO PRN (18:21)
[2021-01-15] MEDS ORDERED: Levofloxacin500mg IV 500 MG/100 ML BAG IV SCH (19:00)
[2021-01-15] MEDS ORDERED: WATER FOR INJ,STERILE 10 ML IV SCH (19:00)
[2021-01-15] MEDS ORDERED: HYDROCORTISONE SUC 100 MG INJ IV ONE (19:00)
[2021-01-15] MEDS ORDERED: NICOTINE 21 MG/PAT TD SCH (19:00)
[2021-01-15] MEDS ORDERED: NA CHLORIDE 0.9% 500 ML ONE (20:20)
[2021-01-16 01:21] VITALS: BP 126/65; TEMP 97.2
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
--- NOTE | 2021-01-16 11:23 | P.PN ---
Subjective Date of Service: 01/15/21 Subjective: No C/O voiced, Improving Some of the edema is improving. Review of Systems 10-point ROS is otherwise unremarkable Physical Examination - Vital Signs Temperature: 97.2 F Blood Pressure: 126/65 Pulse: 69 Respirations: 18 Pulse Ox (%): 99 - Physical Exam General: Alert, In no apparent distress, Oriented x3 Respiratory: Clear to auscultation bilaterally, Normal air movement Cardiovascular: Regular rate/rhythm, Normal S1 S2, No murmurs Gastrointestinal: Normal bowel sounds, Soft and benign, Non-distended, No tenderness Musculoskeletal: No clubbing, Swelling, Tenderness Integumentary: Tenderness/swelling, Erythema Neurological: Normal speech, Normal tone, Normal affect Lymphatics: No axilla or inguinal lymphadenopathy - Studies Medications List Reviewed: Yes Assessment & Plan - Problems (Diagnosis) (1) Left leg cellulitis Status: Acute - Plan Continue with plan of care as mentioned below Will give dose of IV inflammatory did try to help with the erythema and edema 1. Continue with IV antibiotic 2. Pain control 3. Infectious disease consultation 4. Gentle IV hydration 5. Monitor CBC 6. Strict blood sugar monitoring 7. GI and DVT prophylaxis Discharge Plan: Home Plan to discharge in: Greater than 2 days - Advance Directives Does patient have a Living Will: No Does patient have a Durable POA for Healthcare: No - Code Status/Comfort Care Code Status: Full Code Critical Care: No Time Spent Managing PTS Care (In Minutes): 35
--- NOTE | 2021-01-16 11:28 | P.PN ---
Date of Service: 01/15/21 Nurses call for me to see the patient again this evening. Patient states that is IV was nonfunctioning and he wanted to get a PICC line placed. He said he was wanting to go home with IV antibiotics. I personally did not think he would need IV antibiotics as long his of leg continued to improve over the next 48-72 hr. Mild plan was to to get him changed over to oral antibiotics. He tell me that he knows that it will take at least 1-2 weeks to heal up and there is no way it would heal up enough in the next 3 days to go home with oral antibiotics. He said he could not stay in this would room all day and night and he needs to be able to move around. I told him that at this time I did not feel like he would need long-term IV antibiotics and if he was adamant about leaving tomorrow then I would give him oral antibiotics, and if he got worse he could always come back to this hospital or another hospital if it gets worse. He wanted to be able to get around more and I did tell him he could walk around room & nurse's station. He did want a nicotine patch which we were able to get him.
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
== END 2021-01-16 03:15 | disposition left against medical advice (07) | DRG 603 ==
LOC: ER 10:57 → ERHOLD 14:01 → 2ND 15:37
PROVIDERS: ADMIT Hospitalist; ATTEND Hospitalist
DX: L03.116 Cellulitis of left lower limb (principal); F17.210 Nicotine dependence, cigarettes, uncomplicated; Z20.822 Contact with and (suspected) exposure to COVID-19; Z53.29 Procedure and treatment not carried out because of patient's decision for other reasons; Z88.0 Allergy status to penicillin
CPT/HCPCS: 36415; 80048; 84132; 84145; 85025; 85610; 85730; 96365; 96375; 99285; J0692; J1170; J1720; J2405; J3370; J7030; J7040; U0003